=== PATIENT | female | born 1950 | race Caucasian/White ===

== ENCOUNTER 2023-07-29 09:55 | Day surgery (SDC) | payer MEDICARE, OTHER ==
[~2023-07-29 09:55] MED LIST: ALPRAZolam 0.25 MG TAB PO PRN; ALPRAZolam 0.5 MG TAB PO PRN; ASPIRIN 325 MG TAB PO STA; NITROGLYCERIN SL TABS 0.4 MG TAB SUBLINGUAL PRN; SODIUM CHLORIDE 0.9% 1,000 ML in EMPTY BAG 1 BAG IV SCH
[2023-07-29] MEDS: SODIUM CHLORIDE 0.9% 1,000 ML IV ONE (10:54)
[2023-07-29 11:25] VITALS: RESP 16; TEMP 98.1
[2023-07-29] MEDS ORDERED: HEPARIN SODIUM 1,000 UN/ML (10ML VL) ONE (14:07)
[2023-07-29] MEDS: LIDOCAINE 1% INJ 10MG/ML (5 ML VIAL-PF) SQ ONE (14:19)
[2023-07-29] MEDS: MIDAZOLAM 2 MG/2 ML VIAL IVP ONE ×2 (14:19→14:27)
[2023-07-29] MEDS: fentaNYL (PF) 50 MCG/ML 2 ML AMP IVP ONE (14:19)
[2023-07-29] MEDS: VERAPAMIL SYRINGE (5 MG/10 ML) INTRAARTER ONE (14:23)
[2023-07-29] MEDS: HEPARIN SODIUM 1,000 UN/ML (10ML VL) IVP ONE (14:26)
[2023-07-29] MEDS: IOPAMIDOL-370 100ML BTL INJ ONE (14:33)
[2023-07-29] MEDS ORDERED: fentaNYL (PF) 50 MCG/ML 2 ML AMP ONE (14:42)
--- NOTE | 2023-07-29 14:43 | P.CARDCATH ---
Description of Procedure: PROCEDURES PERFORMED: Left heart catheterization, bilateral coronary angiography, ultrasound guided arterial access INDICATION: abnormal stress test CONSENT:I have discussed the risks, benefits and alternative therapies for the above-mentioned procedure and for both sedation/analgesia as well as necessary blood product administration, if indicated, as they pertain to this patient. The patient has indicated understanding and acceptance of the risks and procedures discussed. PROCEDURE: After the risks, benefits and alternatives of the above mentioned procedure explained in detail with the patient, informed consent was obtained. Patient was taken to the catheterization lab and prepped and draped in usual fashion. Ultrasound guidance was used to assess for arterial access. 1% lidocaine was used to anesthetize the right radial artery. A 6-[place] sheath was placed in the right radial artery using modified Seldinger technique and ultrasound guidance. Left coronary angiography was performed with a 5-[place] JL 3.5 catheter and right coronary angiography was performed with a 5-[place] FR5 catheter in various views. A 5-[place] FR5 catheter was inserted into the left ventricle and pressure measurements were obtained. The right radial sheath was removed and a TR band was placed with hemostasis achieved. The patient to lerated the procedure well. Patient was transported back to the post catheterization holding area in stable condition. Conscious Sedation: Patient was monitored under the direct supervision of myself for conscious sedation using Versed and fentanyl for a total duration of 11 minutes HEMODYNAMICS: aorta: 122/78 LV: 121/5, LVEDP 19 SELECTIVE CORONARY ARTERIOGRAPHY: LEFT MAIN: The left main is a large caliber vessel which bifurcates into the LAD and circumflex. There is no significant stenosis. LEFT ANTERIOR DESCENDING CORONARY ARTERY: LAD is a large caliber vessel which wraps around to the apex. There R mild luminal irregularities of the mid LAD of 10% stenosis. LEFT CIRCUMFLEX CORONARY ARTERY: Left circumflex is a moderate caliber vessel without significant stenosis. RIGHT CORONARY ARTERY: The right coronary artery is a large caliber vessel which gives off a PDA and PLV branch and is the dominant vessel. There is no significant stenosis. FINAL IMPRESSION: 1. Relatively normal coronary arteries as described above other then mild luminal irregularities of the mid LAD. 2. Mildly elevated left sided filling pressures PLAN: 1. Aggressive risk factor modification per most recent ACC/AHA guidelines. 2. Follow-up in the office in 1-2 weeks.
[2023-07-29] MEDS ORDERED: RX INFO: IV CONTRAST WAS GIVEN 1 EACH MISC MISCELLANE PRN (15:00)
[2023-07-29 18:34] VITALS: BP 134/71; PULSE 58
== END 2023-07-29 18:28 | disposition home or self-care (01) ==
LOC: CATHCVL 09:55
PROVIDERS: ATTEND Internal Medicine
DX: I73.9 Peripheral vascular disease, unspecified (principal); I10 Essential (primary) hypertension; E78.5 Hyperlipidemia, unspecified; J44.9 Chronic obstructive pulmonary disease, unspecified; F17.290 Nicotine dependence, other tobacco product, uncomplicated; F17.210 Nicotine dependence, cigarettes, uncomplicated; Z79.51 Long term (current) use of inhaled steroids; Z79.899 Other long term (current) drug therapy
CPT/HCPCS: 93458; 76937; C1769 ×2; C1894; J2250; J2001; J3010; J1644; Q9967

== ENCOUNTER 2023-09-12 23:14 | Inpatient (IN) | payer MEDICARE, OTHER ==
--- NOTE | 2023-09-12 23:34 | ED ---
General Adult HPI <Dru Garber - Last Filed: 09/13/23 06:06> - General Source: patient, EMS Mode of arrival: EMS Limitations: no limitations <Kevin Nicholson - Last Filed: 09/13/23 19:14> - General Chief complaint: Fall Stated complaint: Fall Time Seen by Provider: 09/12/23 23:15 - History of Present Illness Initial comments: Patient presents to the ED by ambulance for evaluation after falling this evening. Patient states that she has been falling frequently recently, and she is unsure why. Patient states that her fall this evening occurred after she "lost my balance". Patient denies feeling dizzy or lightheaded prior to falling, and she denies LOC or syncope. Patient is currently only complaining of having mild left hip pain. Patient denies any other injury or site of pain. Patient denies head injury, headache, LOC, focal numbness/weakness/neuro deficit, visual changes, speech difficulty, neck/back/upper extremity pain, chest pain, dyspnea, palpitations, dizziness, abdominal pain, nausea/vomiting/diarrhea, bloody or melanotic stool, dysuria or urinary symptoms, or any other symptoms or complaints. Patient states that her tetanus is up-to-date. (Kevin Nicholson) - Related Data Home Medications Medication Instructions Recorded Confirmed Albuterol Inhaler [Ventolin Hfa 1 puff INHALATION RT-QID 07/26/23 09/13/23 Inhaler] Aspirin [Adult Low Dose Aspirin EC] 81 mg PO QAM 07/26/23 09/13/23 Atorvastatin [Lipitor] 10 mg PO HS 07/26/23 09/13/23 Baclofen 10 mg PO BID 07/26/23 09/13/23 Cholecalciferol [Vitamin D3 (25 25 mcg PO QAM 07/26/23 09/13/23 Mcg = 1000 Iu)] Clopidogrel [Plavix] 75 mg PO QAM 07/26/23 09/13/23 DULoxetine HCL [Cymbalta] 60 mg PO QAM 07/26/23 09/13/23 Docusate [Colace] 100 mg PO BID 07/26/23 09/13/23 Fluticasone/Umeclidin/Vilanter 1 puff INHALATION RT-DAILY 07/26/23 09/13/23 [Trelegy Ellipta 200-62.5-25] Ibuprofen 800 mg PO BID PRN 07/26/23 09/13/23 LORazepam 1 mg PO BID PRN 07/26/23 09/13/23 Loratadine 10 mg PO QAM 07/26/23 09/13/23 Magnesium Hydroxide [Milk of 30 ml PO DAILY PRN 07/26/23 09/13/23 Magnesia] Metoprolol Succinate [Metoprolol 12.5 mg PO PC-LUNCH 07/26/23 09/13/23 Succinate ER] Montelukast [Singulair] 10 mg PO QAM 07/26/23 09/13/23 Vit C/E/Zn/Coppr/Lutein/Zeaxan 2 tab PO BID 07/26/23 09/13/23 [Preservision Areds 2 Softgel] amLODIPine BESYLATE 2.5 mg PO PC-LUNCH 07/26/23 09/13/23 lisinopriL [Zestril] 10 mg PO HS 07/26/23 09/13/23 traMADol HCL 50 mg PO BID PRN 07/26/23 09/13/23 Gabapentin [Neurontin] 100 mg PO TID 09/13/23 09/13/23 Oxybutynin Xl [Ditropan XL] 5 mg PO DAILY 09/13/23 09/13/23 Propylene Glycol/Peg 400 [Systane 1 drop BOTH EYES QID PRN 09/13/23 09/13/23 Ultra 0.4-0.3% Eye Drp] Sodium Chloride 5% Ophth Soln 1 drop BOTH EYES BID 09/13/23 09/13/23 [Mary Anne 128] Allergies Allergy/AdvReac Type Severity Reaction Status Date / Time latex Allergy Rash/Hives Verified 09/13/23 09:36 airborne allergies Allergy congestion. Uncoded 09/12/23 23:21 Review of Systems ROS Other: All systems not noted in ROS Statement are negative. <Dru Garber - Last Filed: 09/13/23 06:06> ROS Other: All systems not noted in ROS Statement are negative. <Kevin Nicholson - Last Filed: 09/13/23 19:14> ROS Statement: Those systems with pertinent positive or pertinent negative responses have been documented in the HPI. Past Medical History Past Medical History: Asthma, Cancer, COPD, GERD/Reflux, Hyperlipidemia, Hypertension, Renal Disease, Vascular Disorder Additional Past Medical History / Comment(s): PAD, peripheral neuropathy bilateral legs, overactive bladder, hyperparathyroidism, kidstones, gallstones, osteoporosis, cervical cancer/surgery, balance issues at times, back pain/scoliosis. History of Any Multi-Drug Resistant Organisms: None Reported Past Surgical History: Orthopedic Surgery Additional Past Surgical History / Comment(s): Cervix surgery, bone spur removed R great toe, bilateral leg angioplasty/stents, pseudocyst removed from pancreas Additional Past Anesthesia/Blood Transfusion Reaction / Comment(s): Pt has woken during surgery. Past Psychological History: Anxiety Smoking Status: Former smoker Past Alcohol Use History: Occasional Past Drug Use History: None Reported - Past Family History Father Family Medical History: No Reported History Mother Family Medical History: Osteoarthritis (OA) Additional Family Medical History / Comment(s): Obesity <Kevin Nicholson - Last Filed: 09/13/23 19:14> General Exam Limitations: no limitations General appearance: alert, in no apparent distress Head exam: Present: atraumatic, normocephalic Eye exam: Present: normal appearance, PERRL, EOMI ENT exam: Present: mucous membranes moist Neck exam: Present: normal inspection, full ROM, other (Trachea is in midline). Absent: tenderness Respiratory exam: Present: normal lung sounds bilaterally. Absent: respiratory distress, wheezes, rales, rhonchi, stridor Cardiovascular Exam: Present: regular rate, normal rhythm, normal heart sounds, other (Normal radial and dorsalis pedis pulses bilaterally) GI/Abdominal exam: Present: soft. Absent: distended, tenderness, guarding Extremities exam: Present: full ROM, other (Pelvis is stable and nontender; patient has full range of motion at bilateral hips and knees; mild left lateral hip tenderness; a superficial abrasion is noted over the left anterior knee). Absent: pedal edema, calf tenderness Back exam: Present: normal inspection. Absent: tenderness Neurological exam: Present: alert, oriented X3, CN II-XII intact. Absent: motor sensory deficit Psychiatric exam: Present: normal affect Skin exam: Present: warm, dry, normal color <Kevin Nicholson - Last Filed: 09/13/23 19:14> Course <Kevin Nicholson - Last Filed: 09/13/23 19:14> Vital Signs 09/12/23 09/13/23 09/13/23 23:18 00:00 01:00 Temperature 98.3 F Pulse Rate 77 72 Respiratory 18 18 18 Rate Blood Pressure 142/84 126/85 128/78 O2 Sat by Pulse 95 95 95 Oximetry 09/13/23 09/13/23 09/13/23 02:00 03:00 04:00 Temperature Pulse Rate 74 Respiratory 18 18 18 Rate Blood Pressure 145/84 142/81 143/86 O2 Sat by Pulse 95 95 95 Oximetry 09/13/23 09/13/23 09/13/23 04:29 05:00 06:00 Temperature Pulse Rate 80 68 72 Respiratory 18 18 18 Rate Blood Pressure 122/79 128/84 122/73 O2 Sat by Pulse 95 90 L 98 Oximetry 09/13/23 10:00 Temperature Pulse Rate 82 Respiratory 18 Rate Blood Pressure 144/85 O2 Sat by Pulse 96 Oximetry - Reevaluation(s) Reevaluation #1: 09/13/23 01:13 Patient was endorsed to Dr. Garber (secondary to end of my shift) with the patient's imaging reports and UA still pending. Dr. Garber to follow-up on the results of these studies and to take over care of the patient at this time. (Kevin Nicholson) EKG Findings - EKG Comments: EKG Findings:: ED physician interpretation (interpreted by me): Normal sinus rhythm, no ectopy, ventricular rate of 72 bpm, normal CO and QRS intervals, no rmal QT interval, normal axis, no ST or T wave abnormality <Kevin Nicholson - Last Filed: 09/13/23 19:14> Medical Decision Making - Lab Data Result diagrams: 09/12/23 23:21 09/12/23 23:21 <Dru Garber - Last Filed: 09/13/23 06:06> - Lab Data Result diagrams: 09/12/23 23:21 09/12/23 23:21 <Kevin Nicholson - Last Filed: 09/13/23 19:14> - Medical Decision Making CT negative for for acute intracranial hemorrhage or mass effect. Pelvis x-ray negative for displaced fracture, chest x-ray concerning for infiltrate given the leukocytosis I will admit for antibiotics. Patient started on IV fluids cultures obtained. (Dru Garber) Was pt. sent in by a medical professional or institution (DANIELE Sevilla, MILEAGE CLERK, urgent care, hospital, or retirement...) When possible be specific @ -No Did you speak to anyone other than the patient for history (EMS, parent, family, police, friend...)? What history was obtained from this source @ -No Did you review nursing and triage notes (agree or disagree)? Why? @ -I reviewed and agree with nursing and triage notes Were old charts reviewed (outside hosp., previous admission, EMS record, old EKG, old radiological studies, urgent care reports/EKG's, retirement records)? Report findings @ -No old charts were reviewed Differential Diagnosis (chest pain, altered mental status, abdominal pain women, abdominal pain men, vaginal bleeding, weakness, fever, dyspnea, syncope, headache, dizziness, GI bleed, back pain, seizure, CVA, palpatations, mental health, musculoskeletal)? @ -Fall, sprain, strain, fracture, contusion, abrasion, vertigo, electrolyte abnormality, renal disease, ACS, dysrhythmia, dehydration, hypoglycemia, hyperglycemia, disequilibrium, CVA, intracranial mass, this is not meant to be a complete list EKG interpreted by me (3pts min.). @ -As above U/S interpreted by me (1pt. min.). @ -None done What testing was considered but not performed or refused? (CT, X-rays, U/S, labs)? Why? @ -None What meds were considered but not given or refused? Why? @ -None Did you discuss the management of the patient with other professionals (professionals i.e. DANIELE Sevilla, MILEAGE CLERK, lab, RT, psych nurse, social services, rock dust sprayer, teacher, tactical response group officer, housing case manager)? Give summary @ -No Was smoking cessation discussed for >3mins.? @ -No Was critical care preformed (if so, how long)? @ -No Were there social determinants of health that impacted care today? How? (Homelessness, low income, unemployed, alcoholism, drug addiction, transportation, low edu. Level, literacy, decrease access to med. care, detention, rehab)? @ -No Was there de-escalation of care discussed even if they declined (Discuss DNR or withdrawal of care, Hospice)? DNR status @ -No What co-morbidities impacted this encounter? (DM, HTN, Smoking, COPD, CAD, Cancer, CVA, ARF, Chemo, Hep., AIDS, mental health diagnosis, sleep apnea, morbid obesity)? @ -None Was patient admitted / discharged? Hospital course, mention meds given and route, prescriptions, significant lab abnormalities, going to OR and other pertinent info. @ -Patient's imaging reports are still pending at this time. Patient was endorsed to Dr. Garber secondary to end of my shift. Patient is noted to have a leukocytosis, but she is not febrile. UA is also still pending at this time. Dr. Garber to take over care of the patient at this time. (Kevin Nicholson) - Lab Data Lab Results 09/12/23 09/12/23 09/12/23 Range/Units 23:21 23:21 23:21 WBC 15.3 H (3.8-10.6) k/uL RBC 4.44 (3.80-5.40) m/uL Hgb 12.3 (11.4-16.0) gm/dL Hct 37.9 (34.0-46.0) % MCV 85.5 (80.0-100.0) fL MCH 27.8 (25.0-35.0) pg MCHC 32.5 (31.0-37.0) g/dL RDW 15.4 (11.5-15.5) % Plt Count 439 (150-450) k/uL MPV 7.6 Neutrophils % 75 % Lymphocytes % 15 % Monocytes % 7 % Eosinophils % 2 % Basophils % 0 % Neutrophils # 11.4 H (1.3-7.7) k/uL Lymphocytes # 2.3 (1.0-4.8) k/uL Monocytes # 1.0 (0-1.0) k/uL Eosinophils # 0.3 (0-0.7) k/uL Basophils # 0.1 (0-0.2) k/uL PT 10.3 (10.0-12.5) sec INR 0.9 (<1.2) APTT 23.3 (22.0-30.0) sec Sodium 127 L (137-145) mmol/L Potassium 3.6 (3.5-5.1) mmol/L Chloride 98 (98-107) mmol/L Carbon Dioxide 22 (22-30) mmol/L Anion Gap 7 mmol/L BUN 12 (7-17) mg/dL Creatinine 0.78 (0.52-1.04) mg/dL Est GFR (CKD-EPI)AfAm 89 (>60 ml/min/1.73 sqM) Est GFR (CKD-EPI)NonAf 77 (>60 ml/min/1.73 sqM) Glucose 90 (74-99) mg/dL Calcium 9.1 (8.4-10.2) mg/dL Total Bilirubin 0.5 (0.2-1.3) mg/dL AST 17 (14-36) U/L ALT 11 (4-34) U/L Alkaline Phosphatase 93 (38-126) U/L Troponin I (0.000-0.034) ng/mL Total Protein 5.8 L (6.3-8.2) g/dL Albumin 3.6 (3.5-5.0) g/dL Procalcitonin (0.02-0.09) ng/mL Urine Color Urine Appearance (Clear) Urine pH (5.0-8.0) Ur Specific [place] (1.001-1.035) Urine Protein (Negative) Urine Glucose (UA) (Negative) Urine Ketones (Negative) Urine Blood (Negative) Urine Nitrite (Negative) Urine Bilirubin (Negative) Urine Urobilinogen (<2.0) mg/dL Ur Leukocyte Esterase (Negative) 09/12/23 09/12/23 09/13/23 Range/Units 23:21 23:21 02:17 WBC (3.8-10.6) k/uL RBC (3.80-5.40) m/uL Hgb (11.4-16.0) gm/dL Hct (34.0-46.0) % MCV (80.0-100.0) fL MCH (25.0-35.0) pg MCHC (31.0-37.0) g/dL RDW (11.5-15.5) % Plt Count (150-450) k/uL MPV Neutrophils % % Lymphocytes % % Monocytes % % Eosinophils % % Basophils % % Neutrophils # (1.3-7.7) k/uL Lymphocytes # (1.0-4.8) k/uL Monocytes # (0-1.0) k/uL Eosinophils # (0-0.7) k/uL Basophils # (0-0.2) k/uL PT (10.0-12.5) sec INR (<1.2) APTT (22.0-30.0) sec Sodium (137-145) mmol/L Potassium (3.5-5.1) mmol/L Chloride (98-107) mmol/L Carbon Dioxide (22-30) mmol/L Anion Gap mmol/L BUN (7-17) mg/dL Creatinine (0.52-1.04) mg/dL Est GFR (CKD-EPI)AfAm (>60 ml/min/1.73 sqM) Est GFR (CKD-EPI)NonAf (>60 ml/min/1.73 sqM) Glucose (74-99) mg/dL Calcium (8.4-10.2) mg/dL Total Bilirubin (0.2-1.3) mg/dL AST (14-36) U/L ALT (4-34) U/L Alkaline Phosphatase (38-126) U/L Troponin I <0.012 (0.000-0.034) ng/mL Total Protein (6.3-8.2) g/dL Albumin (3.5-5.0) g/dL Procalcitonin 0.05 (0.02-0.09) ng/mL Urine Color Colorless Urine Appearance Clear (Clear) Urine pH 6.0 (5.0-8.0) Ur Specific [place] 1.006 (1.001-1.035) Urine Protein Negative (Negative) Urine Glucose (UA) Negative (Negative) Urine Ketones Negative (Negative) Urine Blood Negative (Negative) Urine Nitrite Negative (Negative) Urine Bilirubin Negative (Negative) Urine Urobilinogen <2.0 (<2.0) mg/dL Ur Leukocyte Esterase Negative (Negative) Disposition Is patient prescribed a controlled substance at d/c from ED?: No Time of Disposition: 06:07 <Dru Garber - Last Filed: 09/13/23 06:06> <Kevin Nicholson - Last Filed: 09/13/23 19:14> Clinical Impression: Fall, Abrasion of left knee, Pneumonia, Leukocytosis Disposition: ADMITTED IP TO THIS HOSP Condition: Stable
[2023-09-13 00:25] LABS: INR 0.9 (<1.2); Partial Thromboplastin Time 23.3 sec (22.0-30.0); Prothrombin Time 10.3 sec (10.0-12.5)
[2023-09-13 00:27] LABS: ALT 11 U/L (4-34); AST 17 U/L (14-36); African American GFR (CKD) 89 (>60 ml/min/1.73 sqM); Albumin 3.6 g/dL (3.5-5.0); Alkaline Phosphatase 93 U/L (38-126); Anion Gap 7 mmol/L; Basophils # (A) 0.1 k/uL (0-0.2); Basophils % (A) 0 %; Blood Urea Nitrogen 12 mg/dL (7-17); Calcium 9.1 mg/dL (8.4-10.2); Carbon Dioxide 22 mmol/L (22-30); Chloride 98 mmol/L (98-107); Eosinophils # (A) 0.3 k/uL (0-0.7); Eosinophils % (A) 2 %; Glucose 90 mg/dL (74-99); HCT 37.9 % (34.0-46.0); HGB 12.3 gm/dL (11.4-16.0); Lymphocytes # (A) 2.3 k/uL (1.0-4.8); Lymphocytes % (A) 15 %; MCH 27.8 pg (25.0-35.0); MCHC 32.5 g/dL (31.0-37.0); MCV 85.5 fL (80.0-100.0); Mean Platelet Volume 7.6; Monocytes % (A) 7 %; Neutrophils # (A) 11.4 k/uL (1.3-7.7); Neutrophils % (A) 75 %; Non-African American GFR(CKD) 77 (>60 ml/min/1.73 sqM); Platelet Count 439 k/uL (150-450); Potassium 3.6 mmol/L (3.5-5.1); RBC 4.44 m/uL (3.80-5.40); RDW 15.4 % (11.5-15.5); Sodium 127 mmol/L (137-145); Total Bilirubin 0.5 mg/dL (0.2-1.3); Total Protein 5.8 g/dL (6.3-8.2); WBC 15.3 k/uL (3.8-10.6)
[2023-09-13 02:33] LABS: Appearance,Urine Clear (Clear); Bilirubin,Urine Negative (Negative); Blood,Urine Negative (Negative); Color,Urine Colorless; Glucose,Urine (UA) Negative (Negative); Ketones,Urine Negative (Negative); Leukocyte Esterase,Urine Negative (Negative); Nitrite,Urine Negative (Negative); Protein,Urine Negative (Negative); Specific Gravity,Urine 1.006 (1.001-1.035); Urobilinogen,Urine <2.0 mg/dL (<2.0)
[2023-09-13] MEDS: HYDROmorphone 0.5 MG/0.5 ML SYRINGE IVP STA (04:30)
--- NOTE | 2023-09-13 05:25 | XR ---
EXAM: XR Left Hip With Pelvis When Performed, 1 View CLINICAL HISTORY: [email or web address].[email or web address] XR Reason: fall TECHNIQUE: Frontal view of the left hip with pelvis when performed. COMPARISON: No relevant prior studies available. FINDINGS: Bones/joints: Unremarkable. No acute fracture. No dislocation. Soft tissues: Unremarkable. IMPRESSION: Normal left hip x-ray.
--- NOTE | 2023-09-13 05:25 | CT ---
EXAM: CT Head Without Intravenous Contrast CLINICAL HISTORY: ITS.REASON CT Reason: falls TECHNIQUE: Axial computed tomography images of the head/brain without intravenous contrast. CTDI is 1079.4 mGy and DLP is 1079.4 mGy-cm. This CT exam was performed using one or more of the following dose reduction techniques: automated exposure control, adjustment of the mA and/or kV according to patient size, and/or use of iterative reconstruction technique. COMPARISON: 05/02/2021 FINDINGS: Brain: Right lower lobe infiltrate. No hemorrhage. No significant white matter disease. Ventricles: Unremarkable. No ventriculomegaly. Bones/joints: Unremarkable. No acute fracture. Soft tissues: Unremarkable. Sinuses: Unremarkable as visualized. No acute sinusitis. Mastoid air cells: Unremarkable as visualized. No mastoid effusion. IMPRESSION: No acute findings in the head/brain.
--- NOTE | 2023-09-13 05:26 | XR ---
EXAM: XR Chest, 1 View CLINICAL HISTORY: [email or web address].REASON XR Reason: fall TECHNIQUE: Frontal view of the chest. COMPARISON: No relevant prior studies available. FINDINGS: Lungs: Right lower lobe infiltrate. Pleural space: Unremarkable. No pneumothorax. Heart: Unremarkable. No cardiomegaly. Mediastinum: Unremarkable. Normal mediastinal contour. Bones/joints: Unremarkable. No acute fracture. IMPRESSION: Right lower lobe pneumonia
[2023-09-13] MEDS ORDERED: NALOXONE 0.4 MG/ML 1 ML VIAL IV PRN (06:05)
[2023-09-13] MEDS ORDERED: ACETAMINOPHEN TAB 325 MG TAB PO PRN (06:05)
[2023-09-13] MEDS: SODIUM CHLORIDE 0.9% 500 ML 500 ML IV ONE (06:25)
[2023-09-13] MEDS: AZITHROMYCIN 500 MG in SODIUM CHLORIDE 0.9% 250 ML IVPB STA (06:49)
[2023-09-13] MEDS: SODIUM CHLORIDE 0.9% 1,000 ML IV SCH (06:50)
[2023-09-13] MEDS: HYDROmorphone 0.5 MG/0.5 ML SYRINGE IVP PRN (07:56)
[2023-09-13] MEDS ORDERED: IPRATROPIUM-ALBUTEROL 3 ML NEB INHALATION PRN (11:22)
--- NOTE | 2023-09-13 11:31 | P.HPIM ---
History of Present Illness Patient is a pleasant 73-year-old female came with complaints of multiple falls. Patient was recently started on Neurontin and believes that Neurontin is causing her falls. Patient has multiple other complaints as well patient is com plaining also of left hip pain hip x-ray did not show any fracture, I will obtain a CT of the hip. Patient is unable to move the hip at all patient does have gallstones and patient is complaining of severe pain in the right upper quadrant. Patient does have tenderness in the right upper quadrant ultrasound is being obtained and given surgery is being consulted. Patient has scoliosis and is on scheduled Flexeril without that patient has severe muscle spasms. Patient also has neuropathic symptoms patient is also on Cymbalta along with Neurontin for that patient apparently complained of some dizziness to the ER doctor although she denies any such complaints. Patient used to smoke quit smok ing is complaining of cough with some greenish sputum production chest x-ray did not show any pneumonia. Although it was read as a right lower lobe pneumonia. I will obtain a procalcitonin level patient was started on azithromycin. Patient has slight wheezing on exam. Patient is also hyponatremic with a serum sodium of 127 REVIEW OF SYSTEMS: All other review of systems are negative PHYSICAL EXAMINATION: GENERAL: The patient is alert and oriented x3, not in any acute distress. Thin built female HEENT: Pupils are round and equally reacting to light. EOMI. No scleral icterus. No conjunctival pallor. Normocephalic, atraumatic. No pharyngeal erythema. No thyromegaly. CARDIOVASCULAR: S1 and S2 present. No murmurs, rubs, or gallops. PULMONARY: Expiratory wheezing on exam ABDOMEN: Soft, tenderness in the right upper quadrant nondistended, normoactive bowel sounds. No palpable organomegaly. MUSCULOSKELETAL: Scoliosis no obvious swelling but active and passive motions of the left hip are limited EXTREMITIES: No cyanosis, clubbing, or pedal edema. NEUROLOGICAL: Gross neurological examination did not reveal any focal deficits. SKIN: No rashes. Assessment and plan -Multiple falls can be secondary to Neurontin which will be discontinued. Continue with Cymbalta. Patient apparently complained of dizziness will monitor his blood pressure will start on lisinopril with hold off on amlodipine at this time -Severe left hip pain after fall: Will obtain a CT of the left hip x-ray did not show any fracture if there is a fracture on the CAT scan orthopedic surgery will be consulted -Right upper quadrant abdominal pain General surgery consultation along with an ultrasound -COPD with acute exacerbation and bronchitis I did not see any pneumonic infiltrate will obtain a procalcitonin level patient will be started on azithromycin -Scoliosis -Generalized weakness with physical therapy and Occupational Therapy evaluation -Gastroesophageal reflux disease -Hyperlipidemia -Peripheral vascular disease DVT prophylaxis: Lovenox Past Medical History Past Medical History: Asthma, Cancer, COPD, GERD/Reflux, Hyperlipidemia, Hyper tension, Renal Disease, Vascular Disorder Additional Past Medical History / Comment(s): PAD, peripheral neuropathy bilateral legs, overactive bladder, hyperparathyroidism, kidstones, gallstones, osteoporosis, cervical cancer/surgery, balance issues at times, back pain/scolio sis. History of Any Multi-Drug Resistant Organisms: None Reported Past Surgical History: Orthopedic Surgery Additional Past Surgical History / Comment(s): Cervix surgery, bone spur removed R great toe, bilateral leg angioplasty/stents, pseudocyst removed from pancreas Additional Past Anesthesia/Blood Transfusion Reaction / Comment(s): Pt has woken during surgery. Past Psychological History: Anxiety Smoking Status: Former smoker Past Alcohol Use History: Occasional Past Drug Use History: None Reported - Past Family History Father Family Medical History: No Reported History Mother Family Medical History: Osteoarthritis (OA) Additional Family Medical History / Comment(s): Obesity Medications and Allergies Home Medications Medication Instructions Recorded Confirmed Type Albuterol Inhaler [Ventolin Hfa 1 puff INHALATION RT-QID 07/26/23 09/13/23 History Inhaler] Aspirin [Adult Low Dose Aspirin EC] 81 mg PO QAM 07/26/23 09/13/23 History Atorvastatin [Lipitor] 10 mg PO HS 07/26/23 09/13/23 History Baclofen 10 mg PO BID 07/26/23 09/13/23 History Cholecalciferol [Vitamin D3 (25 25 mcg PO QAM 07/26/23 09/13/23 History Mcg = 1000 Iu)] Clopidogrel [Plavix] 75 mg PO QAM 07/26/23 09/13/23 History DULoxetine HCL [Cymbalta] 60 mg PO QAM 07/26/23 09/13/23 History Docusate [Colace] 100 mg PO BID 07/26/23 09/13/23 History Fluticasone/Umeclidin/Vilanter 1 puff INHALATION RT-DAILY 07/26/23 09/13/23 History [Trelegy Ellipta 200-62.5-25] Ibuprofen 800 mg PO BID PRN 07/26/23 09/13/23 History LORazepam 1 mg PO BID PRN 07/26/23 09/13/23 History Loratadine 10 mg PO QAM 07/26/23 09/13/23 History Magnesium Hydroxide [Milk of 30 ml PO DAILY PRN 07/26/23 09/13/23 History Magnesia] Metoprolol Succinate [Metoprolol 12.5 mg PO PC-LUNCH 07/26/23 09/13/23 History Succinate ER] Montelukast [Singulair] 10 mg PO QAM 07/26/23 09/13/23 History Vit C/E/Zn/Coppr/Lutein/Zeaxan 2 tab PO BID 07/26/23 09/13/23 History [Preservision Areds 2 Softgel] amLODIPine BESYLATE 2.5 mg PO PC-LUNCH 07/26/23 09/13/23 History lisinopriL [Zestril] 10 mg PO HS 07/26/23 09/13/23 History traMADol HCL 50 mg PO BID PRN 07/26/23 09/13/23 History Gabapentin [Neurontin] 100 mg PO TID 09/13/23 09/13/23 History Oxybutynin Xl [Ditropan XL] 5 mg PO DAILY 09/13/23 09/13/23 History Propylene Glycol/Peg 400 [Systane 1 drop BOTH EYES QID PRN 09/13/23 09/13/23 History Ultra 0.4-0.3% Eye Drp] Sodium Chloride 5% Ophth Soln 1 drop BOTH EYES BID 09/13/23 09/13/23 History [Mary Anne 128] Allergies Allergy/AdvReac Type Severity Reaction Status Date / Time latex Allergy Rash/Hives Verified 09/13/23 09:36 airborne allergies Allergy congestion. Uncoded 09/12/23 23:21 Physical Exam Vitals: Vital Signs Temp Pulse Resp BP Pulse Ox 09/13/23 10:00 82 18 144/85 96 09/13/23 06:00 72 18 122/73 98 09/13/23 05:00 68 18 128/84 90 L 09/13/23 04:29 80 18 122/79 95 09/13/23 04:00 74 18 143/86 95 09/13/23 03:00 18 142/81 95 09/13/23 02:00 18 145/84 95 09/13/23 01:00 18 128/78 95 09/13/23 00:00 72 18 126/85 95 09/12/23 23:18 98.3 F 77 18 142/84 95 Intake and Output 09/12/23 09/13/23 09/13/23 22:59 06:59 14:59 Other: Weight 54.431 kg Results CBC & Chem 7: 09/12/23 23:21 09/12/23 23:21 Labs: Abnormal Lab Results - Last 24 Hours (Table) 09/12/23 09/12/23 Range/Units 23:21 23:21 WBC 15.3 H (3.8-10.6) k/uL Neutrophils # 11.4 H (1.3-7.7) k/uL Sodium 127 L (137-145) mmol/L Total Protein 5.8 L (6.3-8.2) g/dL
[2023-09-13] MEDS: FAMOTIDINE 20 MG TAB PO SCH (12:06)
[2023-09-13] MEDS: POTASSIUM CHLORIDE ER 20 MEQ TAB.ER PO STA (12:06)
[2023-09-13] MEDS: BACLOFEN 10 MG TAB PO SCH (12:06)
[2023-09-13] MEDS: HYDROcodone/APAP 7.5-325MG 1 EACH TAB PO PRN (12:07)
--- NOTE | 2023-09-13 13:48 | CT ---
EXAMINATION TYPE: CT hip LT wo con CT DLP: 398.8 mGycm, Automated exposure control for dose reduction was used. DATE OF EXAM: 09/13/2023 1:12 PM COMPARISON: . Extremity radiograph same day. CLINICAL INDICATION:Female, 73 years old with history of Left hip fracture or femoral fracture; PHH, Left hip fracture or femoral fracture TECHNIQUE: Axial images were obtained of the CT hip LT wo con, Additional coronal and sagittal reform atted images and soft tissue and bone window were obtained for review. 3-D reconstruction was created on a separate workstation. Contrast used: mL of , (None if empty) Oral contrast used: (None if empty) FINDINGS: Greater trochanter fracture, minimally comminuted and not significantly displaced. No sign ificant soft tissue swelling or joint effusion is identified. No focal muscular atrophy or edema is i dentified. No radiopaque foreign body identified. IMPRESSION: Greater trochanter fracture, minimally comminuted and not significantly displaced
[2023-09-13] MEDS: ALBUTEROL NEBULIZED 2.5 MG/3 ML INHALATION SCH (16:08)
[2023-09-13] MEDS: IPRATROPIUM-ALBUTEROL 3 ML NEB INHALATION SCH (16:34)
--- NOTE | 2023-09-13 17:23 | P.GSCN ---
History of Present Illness Consult date: 09/13/23 Reason for Consult: right upper quadrant pain History of present illness: this is a 73-year-old female who presents to the emergency room after having a fall. Patient states that she has right upper quadrant pain which radiates to her back. Patient states she had pain prior to her fall. She states the pain is identical to her previous complaints which were worked up and found to have symptomatically cholelithiasis. Past Medical History Past Medical History: Asthma, Cancer, COPD, GERD/Reflux, Hyperlipidemia, Hypertension, Renal Disease, Vascular Disorder Additional Past Medical History / Comment(s): PAD, peripheral neuropathy bilateral legs, overactive bladder, hyperparathyroidism, kidstones, gallstones, osteoporosis, cervical cancer/surgery, balance issues at times, back pain/scoliosis. History of Any Multi-Drug Resistant Organisms: None Reported Past Surgical History: Orthopedic Surgery Additional Past Surgical History / Comment(s): Cervix surgery, bone spur removed R great toe, bilateral leg angioplasty/stents, pseudocyst removed from pancreas Additional Past Anesthesia/Blood Transfusion Reaction / Comm: Pt has woken during surgery. Past Psychological History: Anxiety Smoking Status: Former smoker Past Alcohol Use History: Occasional Past Drug Use History: None Reported - Past Family History Father Family Medical History: No Reported History Mother Family Medical History: Osteoarthritis (OA) Additional Family Medical History / Comment(s): Obesity Medications and Allergies Home Medications Medication Instructions Recorded Confirmed Type Albuterol Inhaler [Ventolin Hfa 1 puff INHALATION RT-QID 07/26/23 09/13/23 History Inhaler] Aspirin [Adult Low Dose Aspirin EC] 81 mg PO QAM 07/26/23 09/13/23 History Atorvastatin [Lipitor] 10 mg PO HS 07/26/23 09/13/23 History Baclofen 10 mg PO BID 07/26/23 09/13/23 History Cholecalciferol [Vitamin D3 (25 25 mcg PO QAM 07/26/23 09/13/23 History Mcg = 1000 Iu)] Clopidogrel [Plavix] 75 mg PO QAM 07/26/23 09/13/23 History DULoxetine HCL [Cymbalta] 60 mg PO QAM 07/26/23 09/13/23 History Docusate [Colace] 100 mg PO BID 07/26/23 09/13/23 History Fluticasone/Umeclidin/Vilanter 1 puff INHALATION RT-DAILY 07/26/23 09/13/23 History [Trelegy Ellipta 200-62.5-25] Ibuprofen 800 mg PO BID PRN 07/26/23 09/13/23 History LORazepam 1 mg PO BID PRN 07/26/23 09/13/23 History Loratadine 10 mg PO QAM 07/26/23 09/13/23 History Magnesium Hydroxide [Milk of 30 ml PO DAILY PRN 07/26/23 09/13/23 History Magnesia] Metoprolol Succinate [Metoprolol 12.5 mg PO PC-LUNCH 07/26/23 09/13/23 History Succinate ER] Montelukast [Singulair] 10 mg PO QAM 07/26/23 09/13/23 History Vit C/E/Zn/Coppr/Lutein/Zeaxan 2 tab PO BID 07/26/23 09/13/23 History [Preservision Areds 2 Softgel] amLODIPine BESYLATE 2.5 mg PO PC-LUNCH 07/26/23 09/13/23 History lisinopriL [Zestril] 10 mg PO HS 07/26/23 09/13/23 History traMADol HCL 50 mg PO BID PRN 07/26/23 09/13/23 History Gabapentin [Neurontin] 100 mg PO TID 09/13/23 09/13/23 History Oxybutynin Xl [Ditropan XL] 5 mg PO DAILY 09/13/23 09/13/23 History Propylene Glycol/Peg 400 [Systane 1 drop BOTH EYES QID PRN 09/13/23 09/13/23 History Ultra 0.4-0.3% Eye Drp] Sodium Chloride 5% Ophth Soln 1 drop BOTH EYES BID 09/13/23 09/13/23 History [Mary Anne 128] Allergies Allergy/AdvReac Type Severity Reaction Status Date / Time latex Allergy Rash/Hives Verified 09/13/23 09:36 airborne allergies Allergy congestion. Uncoded 09/12/23 23:21 Surgical - Exam Vital Signs Temp Pulse Resp BP Pulse Ox 98.3 F 77 18 142/84 95 09/12/23 23:18 09/12/23 23:18 09/12/23 23:18 09/12/23 23:18 09/12/23 23:18 - General well developed, well nourished - Eyes PERRL, normal ocular movement - ENT normal pinna - Neck no masses - Respiratory normal expansion - Cardiovascular Rhythm: regular - Abdomen right upper quadrant tenderness Abdomen: soft Results - Labs 09/12/23 23:21 09/12/23 23:21 Abnormal Lab Results - Last 24 Hours (Table) 09/12/23 09/12/23 Range/Units 23:21 23:21 WBC 15.3 H (3.8-10.6) k/uL Neutrophils # 11.4 H (1.3-7.7) k/uL Sodium 127 L (137-145) mmol/L Total Protein 5.8 L (6.3-8.2) g/dL Diabetes panel 09/12/23 Range/Units 23:21 Sodium 127 L (137-145) mmol/L Potassium 3.6 (3.5-5.1) mmol/L Chloride 98 (98-107) mmol/L Carbon Dioxide 22 (22-30) mmol/L BUN 12 (7-17) mg/dL Creatinine 0.78 (0.52-1.04) mg/dL Glucose 90 (74-99) mg/dL Calcium 9.1 (8.4-10.2) mg/dL AST 17 (14-36) U/L ALT 11 (4-34) U/L Alkaline Phosphatase 93 (38-126) U/L Total Protein 5.8 L (6.3-8.2) g/dL Albumin 3.6 (3.5-5.0) g/dL Calcium panel 09/12/23 Range/Units 23:21 Calcium 9.1 (8.4-10.2) mg/dL Albumin 3.6 (3.5-5.0) g/dL Pituitary panel 09/12/23 Range/Units 23:21 Sodium 127 L (137-145) mmol/L Potassium 3.6 (3.5-5.1) mmol/L Chloride 98 (98-107) mmol/L Carbon Dioxide 22 (22-30) mmol/L BUN 12 (7-17) mg/dL Creatinine 0.78 (0.52-1.04) mg/dL Glucose 90 (74-99) mg/dL Calcium 9.1 (8.4-10.2) mg/dL Adrenal panel 09/12/23 Range/Units 23:21 Sodium 127 L (137-145) mmol/L Potassium 3.6 (3.5-5.1) mmol/L Chloride 98 (98-107) mmol/L Carbon Dioxide 22 (22-30) mmol/L BUN 12 (7-17) mg/dL Creatinine 0.78 (0.52-1.04) mg/dL Glucose 90 (74-99) mg/dL Calcium 9.1 (8.4-10.2) mg/dL Total Bilirubin 0.5 (0.2-1.3) mg/dL AST 17 (14-36) U/L ALT 11 (4-34) U/L Alkaline Phosphatase 93 (38-126) U/L Total Protein 5.8 L (6.3-8.2) g/dL Albumin 3.6 (3.5-5.0) g/dL - Imaging US - abdomen: pending Assessment and Plan Assessment: history of symptomatic cholelithiasis. Patient has been quadrant pain which is similar to her previous attacks of biliary colic. Patient most likely has acute and chronic cholecystitis. She'll be treated with antibiotics. Ultrasound of the gallbladder is pending.
[2023-09-13] MEDS: METOPROLOL SUCCINATE (ER) 25 MG TAB.ER.24H PO SCH (17:44)
[2023-09-13] MEDS: PIPERACILLIN-TAZOBACTAM 3.375 GM in SODIUM CHLORIDE 0.9% 100 ML IVPB SCH (17:50)
--- NOTE | 2023-09-13 18:50 | US ---
EXAMINATION TYPE: US gallbladder DATE OF EXAM: 09/13/2023 COMPARISON: NONE CLINICAL INDICATION: Female, 73 years old with history of elevated liver enzymes; Elevated liver enzy mes. Patient states she has a hx of gallstones, kidney stones, pancreatic pseudocyst drainage, and surgery on her bile duct. TECHNIQUE: Multiple sonographic images of the right upper quadrant are obtained. FINDINGS: EXAM MEASUREMENTS: Liver Length: 14.1 cm Gallbladder Wall: 0.17 cm CBD: 0.55 cm Right Kidney: 11.2 x 6.1 x 4.5 cm SILVERWARE WASHER NOTES: Exam is limited due to gas. Pancreas: Obscured. Liver: Appears coarse in echotexture. Gallbladder: Mildly hydropic at 10.8 cm in length. Mobile internal echoes seen within the gallblad nitin. No wall thickening or surrounding fluid. Evidence for sonographic Santos's sign: No CBD: 0. 55 cm Right Kidney: Thinly septated cyst at midpole: 3.9 x 3.2 x 3.1 cm. Hypoechoic cortical lesion at the upper pole: 1.3 x 1.0 x 1.4 cm. No hydronephrosis. IMPRESSION: 1. Mildly hydropic gallbladder with some internal read. The distention is probably due to fasting sta te. No wall thickening or sonographic Santos sign. If further imaging assessment of the gallbladder i s desired, HIDA scan can be considered. 2. No biliary ductal dilatation. 3. 2 lesions of the right kidney. One of these appears to be a mildly complex 3.9 cm cyst. The other is indeterminate measuring 1.4 cm. Six-month follow-up renal ultrasound to reassess.
[2023-09-13] MEDS ORDERED: BUDESONIDE 0.5 MG/2 ML NEBU INHALATION SCH (20:00)
[2023-09-13] MEDS: SYMBICORT 80-4.5 MCG INHALER INHALATION SCH (20:56)
[2023-09-13] MEDS: DOCUSATE 100 MG CAP PO SCH (21:35)
[2023-09-13] MEDS: ATORVASTATIN 10 MG TAB PO SCH (21:35)
[2023-09-13] MEDS: lisinopriL 10 MG TAB PO SCH (21:35)
[2023-09-13] MEDS: LORazepam 1 MG TAB PO PRN (21:38)
[2023-09-14] MEDS: KETOROLAC 15 MG/ML 1 ML VIAL IVP PRN (00:37)
[2023-09-14] MEDS: SODIUM CHLORIDE 5% OPHTH DROPS 15 ML BTL BOTH EYES SCH (01:02)
[2023-09-14] MEDS ORDERED: IPRATROPIUM 0.5 MG/2.5 ML NEBU INHALATION SCH (08:00)
[2023-09-14] MEDS: DULoxetine HCL 60 MG CAPSULE.DR PO SCH (08:26)
[2023-09-14] MEDS: MONTELUKAST 10 MG TAB PO SCH (08:26)
[2023-09-14] MEDS: ASPIRIN 81 MG PO SCH (08:26)
[2023-09-14] MEDS: ENOXAPARIN 40 MG/0.4 ML SYRINGE SQ SCH (08:26)
[2023-09-14] MEDS: OXYBUTYNIN XL 5 MG TAB.ER.24 PO SCH (08:26)
[2023-09-14] MEDS: LORATADINE 10 MG TAB PO SCH (08:27)
[2023-09-14] MEDS: CLOPIDOGREL 75 MG TAB PO SCH (08:27)
[2023-09-14] MEDS ORDERED: AZITHROMYCIN 500 MG TAB PO SCH (09:00)
--- NOTE | 2023-09-14 11:32 | P.PN ---
Subjective Progress Note Date: 09/14/23 Patient is a pleasant 73-year-old female came with complaints of multiple falls. Patient was recently started on Neurontin and believes that Neurontin is causing her falls. Patient has multiple other complaints as well patient is complaining also of left hip pain hip x-ray did not show any fracture, I will obtain a CT of the hip. Patient is unable to move the hip at all patient does have gallstones and patient is complaining of severe pain in the right upper quadrant. Patient does have tenderness in the right upper quadrant ultrasound is being obtained and given surgery is being consulted. Patient has scoliosis and is on scheduled Flexeril without that patient has severe muscle spasms. Patient also has neuropathic symptoms patient is also on Cymbalta along with Neurontin for that patient apparently complained of some dizziness to the ER doctor although she denies any such complaints. Patient used to smoke quit smoking is complaining of cough with some greenish sputum production chest x-ray did not show any pneumonia. Although it was read as a right lower lobe pneumonia. I will obtain a procalcitonin level patient was started on azithromycin. Patient has slight wheezing on exam. Patient is also hyponatremic with a serum sodium of 127 09/14/2023 Patient is evaluated in follow up today on the medical floor. Her main complaint is right flank and right upper quadrant pain states it is sharp and aching rating 10/10. States the pain is greater than the pain to the left hip. Patient is receiving norco 7.5 mg and IV toradol. There is concern for Right lower lobe pneumonia, procalcitonin level is normal. Viral panel has been ordered. Patient is complaining of shortness of breath and wheezing today does have scattered wheezing on exam. Gallbladder ultrasound reveals mild hydropic gallbladder with concern for acute on chronic cholecystitis. General surgery following and jamarcus ent is currently on IV zosyn. The hip CT reveals left greater trochanter fracture, minimally communited, and not significantly displaced. No new blood work from today. Review of Systems Constitutional: Denied any fatigue denied any fever. Cardio vascular: denied any chest pain, palpitations Gastrointestinal: denied any nausea, vomiting, diarrhea, reports RUQ abdominal pain Pulmonary: Reports shortness of breath, no cough Neurologic denied any new focal deficits All inpatient medications were reviewed and appropriate changes in these medications as dictated in the interval history and assessment and plan. PHYSICAL EXAMINATION: GENERAL: The patient is alert and oriented x3, not in any acute distress. Thin built female HEENT: Pupils are round and equally reacting to light. EOMI. No scleral icterus. No conjunctival pallor. Normocephalic, atraumatic. No pharyngeal erythema. No thyromegaly. CARDIOVASCULAR: S1 and S2 present. No murmurs, rubs, or gallops. PULMONARY: Expiratory wheezing on exam ABDOMEN: Soft, tenderness in the right upper quadrant nondistended, normoactive bowel sounds. No palpable organomegaly. MUSCULOSKELETAL: Scoliosis no obvious swelling but active and passive motions of the left hip are limited EXTREMITIES: No cyanosis, clubbing, or pedal edema. NEUROLOGICAL: Gross neurological examination did not reveal any focal deficits. SKIN: No rashes. Assessment and plan -Multiple falls can be secondary to Neurontin which will be discontinued. Continue with Cymbalta. Patient apparently complained of dizziness amlodipine is on hold, dizziness has resolved. BP not low. -Severe left hip pain after fall: CT reveals Left greater tronchater fracture with orthopedics on consultation pending further recommendations. -Right upper quadrant abdominal pain likely due to acute on chronic cholecystitis, US reveals a mildly hydropic gallbladder on IV zosyn, general surgery following. Continue pain regimen. -COPD with acute exacerbation and bronchitis, mild right lower lobe infiltrate noted on exam. Viral panel ordered, procalcitonin level normal. Patient has continued scattered wheezing as patient may require surgical intervention this admission for the hip and the gallbladder, pulmonary services will be consulted. Patient continues on symbicort, updrafts and will add oral prednisone 40 mg daily. -Scoliosis -Generalized weakness with physical therapy and Occupational Therapy evaluation -Gastroesophageal reflux disease -Hyperlipidemia -Peripheral vascular disease DVT prophylaxis: Lovenox GI prophylaxis: Pepcid Full Code The impression and plan of care has been dictated by Brissa Lees Nurse Practitioner as directed. Dr. Mata MD I have performed a history and physical examination and medical decision making of this patient, discussed the same with the dictator, and agree with the dictators assessment and plan as written, documented as a scribe. Based on total visit time, I have performed more than 50% of this visit. Objective - Vital Signs Vital signs: Vital Signs Temp 98.5 F 09/14/23 07:55 Pulse 80 09/14/23 09:31 Resp 17 09/14/23 07:55 BP 159/76 09/14/23 07:55 Pulse Ox 95 09/14/23 07:55 FiO2 Intake & Output 09/13/23 09/14/23 09/14/23 18:59 06:59 18:59 Intake Total 700 Output Total 1000 Balance -300 Weight 54.431 kg Intake: Intake, IV Titration 700 Amount Piperacillin-Tazobactam 3 100 .375 gm In Sodium Chloride 0.9% 100 ml @ 25 mls/hr IVPB Q8HR [facility] Rx# :[id number] Sodium Chloride 0.9% 1, 600 000 ml @ 75 mls/hr IV . [id number] [facility] Rx#:[id number] Output: Urine 1000 Other: Voiding Method External Catheter - Labs CBC & Chem 7: 09/12/23 23:21 09/12/23 23:21 Assessment and Plan Time with Patient: Less than 30
--- NOTE | 2023-09-14 12:10 | P.CNOR ---
History of Present Illness - HPI Consult date: 09/14/23 History of present illness: This is a 73-year-old female who is admitted after multiple falls. Patient states that she has had at least 3 falls within the last week and states that she loses her balance. Patient states that she lives at home and has been able to ambulate with or without a walker. Patient states that she has noticed some left hip pain after one of her recent falls. Patient states that she is also here for evaluation of gallbladder issues. Patient's past medical history is significant for asthma, COPD, GERD, hyperlipidemia, hypertension, peripheral neuropathy, history of cervical cancer, overactive bladder, PAD, osteoporosis, history of back pain, renal disease and a vascular disorder. Patient denies any fever/chills, chest pain, shortness breath, numbness, weakness or tingling. Review of Systems See HPI. Past Medical History Past Medical History: Asthma, Cancer, COPD, GERD/Reflux, Hyperlipidemia, Hypertension, Renal Disease, Vascular Disorder Additional Past Medical History / Comment(s): PAD, peripheral neuropathy bilateral legs, overactive bladder, hyperparathyroidism, kidstones, gallstones, osteoporosis, cervical cancer/surgery, balance issues at times, back pain/scoliosis. History of Any Multi-Drug Resistant Organisms: None Reported Past Surgical History: Orthopedic Surgery Additional Past Surgical History / Comment(s): Cervix surgery, bone spur removed R great toe, bilateral leg angioplasty/stents, pseudocyst removed from pancreas Additional Past Anesthesia/Blood Transfusion Reaction / Comm: Pt has woken during surgery. Smoking Status: Former smoker - Past Family History Father Family Medical History: No Reported History Mother Family Medical History: Osteoarthritis (OA) Additional Family Medical History / Comment(s): Obesity Medications and Allergies Home Medications Medication Instructions Recorded Confirmed Type Albuterol Inhaler [Ventolin Hfa 1 puff INHALATION RT-QID 07/26/23 09/13/23 History Inhaler] Aspirin [Adult Low Dose Aspirin EC] 81 mg PO QAM 07/26/23 09/13/23 History Atorvastatin [Lipitor] 10 mg PO HS 07/26/23 09/13/23 History Baclofen 10 mg PO BID 07/26/23 09/13/23 History Cholecalciferol [Vitamin D3 (25 25 mcg PO QAM 07/26/23 09/13/23 History Mcg = 1000 Iu)] Clopidogrel [Plavix] 75 mg PO QAM 07/26/23 09/13/23 History DULoxetine HCL [Cymbalta] 60 mg PO QAM 07/26/23 09/13/23 History Docusate [Colace] 100 mg PO BID 07/26/23 09/13/23 History Fluticasone/Umeclidin/Vilanter 1 puff INHALATION RT-DAILY 07/26/23 09/13/23 History [Trelegy Ellipta 200-62.5-25] Ibuprofen 800 mg PO BID PRN 07/26/23 09/13/23 History LORazepam 1 mg PO BID PRN 07/26/23 09/13/23 History Loratadine 10 mg PO QAM 07/26/23 09/13/23 History Magnesium Hydroxide [Milk of 30 ml PO DAILY PRN 07/26/23 09/13/23 History Magnesia] Metoprolol Succinate [Metoprolol 12.5 mg PO PC-LUNCH 07/26/23 09/13/23 History Succinate ER] Montelukast [Singulair] 10 mg PO QAM 07/26/23 09/13/23 History Vit C/E/Zn/Coppr/Lutein/Zeaxan 2 tab PO BID 07/26/23 09/13/23 History [Preservision Areds 2 Softgel] amLODIPine BESYLATE 2.5 mg PO PC-LUNCH 07/26/23 09/13/23 History lisinopriL [Zestril] 10 mg PO HS 07/26/23 09/13/23 History traMADol HCL 50 mg PO BID PRN 07/26/23 09/13/23 History Gabapentin [Neurontin] 100 mg PO TID 09/13/23 09/13/23 History Oxybutynin Xl [Ditropan XL] 5 mg PO DAILY 09/13/23 09/13/23 History Propylene Glycol/Peg 400 [Systane 1 drop BOTH EYES QID PRN 09/13/23 09/13/23 History Ultra 0.4-0.3% Eye Drp] Sodium Chloride 5% Ophth Soln 1 drop BOTH EYES BID 09/13/23 09/13/23 History [Mary Anne 128] Allergies Allergy/AdvReac Type Severity Reaction Status Date / Time latex Allergy Rash/Hives Verified 09/13/23 09:36 airborne allergies Allergy congestion. Uncoded 09/12/23 23:21 Physical Examination On exam patient is resting comfortably in bed in no acute distress. Patient is alert and oriented 3. There is tenderness to palpation over the lateral aspect of the left hip. Patient has some discomfort with active hip flexion. There is some discomfort with hip motion. Calf is soft and nontender to palpation. Sensation intact. Neurovascular status and circulatory status are intact. Results A CT report of the left hip without contrast dated 09/13/2023 shows: Greater trochanter fracture, minimally comminuted and not significantly displaced. X-rays of the left hip and pelvis dated 09/13/2023 are negative. - Labs Labs: H & H 09/12/23 Range/Units 23:21 Hgb 12.3 (11.4-16.0) gm/dL Hct 37.9 (34.0-46.0) % Coagulation 09/12/23 Range/Units 23:21 INR 0.9 (<1.2) Result Diagrams: 09/12/23 23:21 09/12/23 23:21 Assessment and Plan (1) Fracture of greater trochanter of left femur Current Visit: Yes Status: Acute Code(s): S72.112A - DISP FX OF GREATER TROCHANTER OF LEFT FEMUR, INIT SNOMED Code(s): 599637942 Plan: 1. Imaging is reviewed. Patient is to protect her weightbearing and utilize a walker at all times. 2. Recommend physical therapy for mobilization. 3. There is no surgical intervention planned. Patient may follow-up as an outpatient.
[2023-09-14] MEDS: predniSONE 20 MG TAB PO SCH (12:11)
--- NOTE | 2023-09-14 13:10 | P.CNPUL ---
History of Present Illness Consult date: 09/14/23 Requesting physician: Delicia Hanley Reason for consult: dyspnea, COPD, abnormal CXR/CT Chief complaint: Right upper quadrant pain. History of present illness: Pulmonary consult dated September 14, 2023. This is a 73-year-old female who is seen today in the observation unit, room 161. She is currently on room air. The patient apparently came into the hospital complaining of losing balance, and pain in her right side, radiating to the back. The patient's chest x-ray shows some atelectasis in my opinion at the right lung base, likely because of her underlying gallbladder disease. She apparently is scheduled to have a cholecystectomy, tomorrow. Her procalcitonin level was 0.05, which is normal. She was placed on Rocephin and azithromycin. She did smoke for 40 to 50 years, at 1 pack a day. She does have established COPD and she sees my partner Dr. Kwon. For her COPD she uses Trelegy 200, 1 puff daily, and albuterol, as needed. Patient was actually admitted on September 11. The patient's past medical history is positive for COPD, gastroesophageal reflux disease, hyperlipidemia, hypertension, peripheral neuropathy, peripheral artery disease, overactive bladder, hyperparathyroidism, kidney stones, osteoporosis, cervical cancer, as well as anxiety. The patient currently does not smoke. Current labs include a white count of 15.3, hemoglobin 12.3, hematocrit 37.9, and a platelet count of 439,000. Coagulation studies were normal. Sodium 127, potassium 3.6, chlorides 98, CO2 22, BUN 12, creatinine 0.78. Glucose is normal. Procalcitonin level is 0.05. Urine is negative. She tested negative for influenza, RSV, and coronavirus. Blood cultures are currently negative. Gallbladder ultrasound shows a mildly hydropic gallbladder without biliary duct dilatation. A HIDA scan was recommended. Review of Systems REVIEW OF SYSTEMS: CONSTITUTIONAL: [Negative.] NEUROLOGIC: Losing balance. HEENT: [ Negative.] CARDIAC: [Negative.] PULMONARY: Chronic shortness of breath, at baseline. GI: Right upper quadrant abdominal pain. : [Negative.] RHEUMATOLOGIC: [ Negative.] IMMUNOLOGIC: [ Negative.] ENDOCRINE: [Negative. ] DERMATOLOGIC: [Negative.] Past Medical History Past Medical History: Asthma, Cancer, COPD, GERD/Reflux, Hyperlipidemia, Hypertension, Renal Disease, Vascular Disorder Additional Past Medical History / Comment(s): PAD, peripheral neuropathy bilateral legs, overactive bladder, hyperparathyroidism, kidstones, gallstones, osteoporosis, cervical cancer/surgery, balance issues at times, back pain/scoliosis. History of Any Multi-Drug Resistant Organisms: None Reported Past Surgical History: Orthopedic Surgery Additional Past Surgical History / Comment(s): Cervix surgery, bone spur removed R great toe, bilateral leg angioplasty/stents, pseudocyst removed from pancreas Additional Past Anesthesia/Blood Transfusion Reaction / Comment(s): Pt has woken during surgery. Smoking Status: Former smoker - Past Family History Father Family Medical History: No Reported History Mother Family Medical History: Osteoarthritis (OA) Additional Family Medical History / Comment(s): Obesity Medications and Allergies Home Medications Medication Instructions Recorded Confirmed Type Albuterol Inhaler [Ventolin Hfa 1 puff INHALATION RT-QID 07/26/23 09/13/23 History Inhaler] Aspirin [Adult Low Dose Aspirin EC] 81 mg PO QAM 07/26/23 09/13/23 History Atorvastatin [Lipitor] 10 mg PO HS 07/26/23 09/13/23 History Baclofen 10 mg PO BID 07/26/23 09/13/23 History Cholecalciferol [Vitamin D3 (25 25 mcg PO QAM 07/26/23 09/13/23 History Mcg = 1000 Iu)] Clopidogrel [Plavix] 75 mg PO QAM 07/26/23 09/13/23 History DULoxetine HCL [Cymbalta] 60 mg PO QAM 07/26/23 09/13/23 History Docusate [Colace] 100 mg PO BID 07/26/23 09/13/23 History Fluticasone/Umeclidin/Vilanter 1 puff INHALATION RT-DAILY 07/26/23 09/13/23 History [Trelegy Ellipta 200-62.5-25] Ibuprofen 800 mg PO BID PRN 07/26/23 09/13/23 History LORazepam 1 mg PO BID PRN 07/26/23 09/13/23 History Loratadine 10 mg PO QAM 07/26/23 09/13/23 History Magnesium Hydroxide [Milk of 30 ml PO DAILY PRN 07/26/23 09/13/23 History Magnesia] Metoprolol Succinate [Metoprolol 12.5 mg PO PC-LUNCH 07/26/23 09/13/23 History Succinate ER] Montelukast [Singulair] 10 mg PO QAM 07/26/23 09/13/23 History Vit C/E/Zn/Coppr/Lutein/Zeaxan 2 tab PO BID 07/26/23 09/13/23 History [Preservision Areds 2 Softgel] amLODIPine BESYLATE 2.5 mg PO PC-LUNCH 07/26/23 09/13/23 History lisinopriL [Zestril] 10 mg PO HS 07/26/23 09/13/23 History traMADol HCL 50 mg PO BID PRN 07/26/23 09/13/23 History Gabapentin [Neurontin] 100 mg PO TID 09/13/23 09/13/23 History Oxybutynin Xl [Ditropan XL] 5 mg PO DAILY 09/13/23 09/13/23 History Propylene Glycol/Peg 400 [Systane 1 drop BOTH EYES QID PRN 09/13/23 09/13/23 History Ultra 0.4-0.3% Eye Drp] Sodium Chloride 5% Ophth Soln 1 drop BOTH EYES BID 09/13/23 09/13/23 History [Mary Anne 128] Allergies Allergy/AdvReac Type Severity Reaction Status Date / Time latex Allergy Rash/Hives Verified 09/13/23 09:36 airborne allergies Allergy congestion. Uncoded 09/12/23 23:21 Physical Exam Osteopathic Statement: *. No significant issues noted on an osteopathic struct ural exam other than those noted in the History and Physical/Consult. Vitals: Vital Signs Temp Pulse Pulse Resp BP Pulse Ox 09/14/23 09:31 80 09/14/23 09:22 82 09/14/23 07:55 98.5 F 74 17 159/76 95 09/14/23 02:00 98.1 F 74 18 168/84 96 09/13/23 21:06 78 09/13/23 20:57 77 09/13/23 20:00 98.1 F 71 22 155/85 09/13/23 17:18 98.6 F 77 16 136/73 96 09/13/23 16:42 71 09/13/23 16:35 68 Intake and Output 09/13/23 09/14/23 09/14/23 22:59 06:59 14:59 Intake Total 700 Output Total 1000 Balance -300 Intake: Intake, IV Titration 700 Amount Piperacillin-Tazobactam 3 100 .375 gm In Sodium Chloride 0.9% 100 ml @ 25 mls/hr IVPB Q8HR [facility] Rx# :[id number] Sodium Chloride 0.9% 1, 600 000 ml @ 75 mls/hr IV . [id number] [facility] Rx#:[id number] Output: Urine 1000 Other: Voiding Method External Catheter Weight 54.431 kg No acute distress, oriented 3. Currently on room air. HEENT examination is grossly unremarkable. Mucous membranes are moist. No oral lesions. Neck supple. Full range of motion. No adenopathy thyromegaly or neck vein distention. Cardiovascular examination reveals regular rhythm rate. S1-S2 normal. No S3 or S4. No discernible murmur noted. Heart rate 80 bpm. Lungs reveal diminished but clear breath sounds. No wheezes, rhonchi, or crackles. Room air saturation 96%. Abdomen soft, with tenderness, in the right upper quadrant. No masses. Extremities are intact. No cyanosis clubbing or edema. Skin is without rash or lesion. Neurologic examination is brief but nonfocal. Results - Laboratory Findings CBC and BMP: 09/12/23 23:21 09/12/23 23:21 PT/INR, D-dimer PT 10.3 sec (10.0-12.5) 09/12/23 23:21 INR 0.9 (<1.2) 09/12/23 23:21 Abnormal lab findings: Abnormal Labs 09/12/23 09/12/23 23:21 23:21 WBC 15.3 H Neutrophils # 11.4 H Sodium 127 L Total Protein 5.8 L - Diagnostic Findings Chest x-ray: image reviewed Assessment and Plan Assessment: Right upper quadrant abdominal pain, with a positive Santos's sign, secondary to acute on chronic gallbladder disease. COPD, stable, secondary to 40 to 50 years of tobacco use. Doubt pneumonia, right lower lobe changes, are atelectatic, and secondary to her right upper quadrant abdominal pain and gallbladder disease. Status post fall, with fracture of the left greater trochanter. History of gastroesophageal reflux disease. History of hypertension. History of hyperlipidemia. History of hyperparathyroidism, and kidney stones. History of osteoporosis. History of cervical cancer. Stress urinary incontinence. Plan: Plan dated September 14, 2023. The patient is currently evaluated, in the observation unit, room 161. The patient apparently is going to have gallbladder surgery tomorrow, for acute on chronic gallbladder disease. The patient presented with right upper quadrant abdominal pain, left hip pain, and losing balance, with falls. The patient was discovered to have a left greater trochanter fracture, and, is thought to have acute cholecystitis as well. The patient's chest x-ray shows some atelectatic changes at the right lung base. Her procalcitonin level is normal. I do not believe she has pneumonia. She does not need the current antibiotics that she is on, but may need antibiotics for her gallbladder. Will leave that up to surgery. Additional recommendations and suggestions are forthcoming. Time with Patient: Greater than 30
--- NOTE | 2023-09-14 14:12 | P.PN ---
Progress Note - Text Progress Note Date: 09/14/23 Patient still complains of upper quadrant pain. She is describes it as her biliary colic pain that she knows. She feels slightly better than yesterday. On exam vital signs appear stable. Abdomen is soft there is tenderness upper quadrant. Symptomatic cholelithiasis with possible cholecystitis. Patient will be scheduled for laparoscopic cholecystectomy in the a.m.
[2023-09-14 14:23] LABS: HCT 35.1 % (34.0-46.0); HGB 11.2 gm/dL (11.4-16.0); MCH 27.6 pg (25.0-35.0); MCHC 31.8 g/dL (31.0-37.0); MCV 86.7 fL (80.0-100.0); Mean Platelet Volume 7.2; Platelet Count 501 k/uL (150-450); RBC 4.05 m/uL (3.80-5.40); RDW 15.6 % (11.5-15.5); WBC 13.1 k/uL (3.8-10.6)
[2023-09-14 14:44] LABS: African American GFR (CKD) >90 (>60 ml/min/1.73 sqM); Anion Gap 10 mmol/L; Blood Urea Nitrogen 11 mg/dL (7-17); Carbon Dioxide 17 mmol/L (22-30); Chloride 109 mmol/L (98-107); Glucose 95 mg/dL (74-99); Non-African American GFR(CKD) 81 (>60 ml/min/1.73 sqM); Potassium 3.9 mmol/L (3.5-5.1); Sodium 136 mmol/L (137-145)
[2023-09-14 15:47] VITALS: BMI 21.9
[2023-09-14] MEDS: SYMBICORT 160-4.5 MCG INHALER INHALATION SCH (20:56)
[2023-09-15 07:00] LABS: African American GFR (CKD) >90 (>60 ml/min/1.73 sqM); Anion Gap 7 mmol/L; Blood Urea Nitrogen 17 mg/dL (7-17); Calcium 8.9 mg/dL (8.4-10.2); Carbon Dioxide 17 mmol/L (22-30); Chloride 109 mmol/L (98-107); Glucose 107 mg/dL (74-99); Non-African American GFR(CKD) 83 (>60 ml/min/1.73 sqM); Potassium 3.4 mmol/L (3.5-5.1); Sodium 133 mmol/L (137-145)
[2023-09-15] MEDS: POTASSIUM CHLORIDE ER 20 MEQ TAB.ER PO STA (08:47)
--- NOTE | 2023-09-15 10:57 | P.PN ---
Subjective Progress Note Date: 09/15/23 Principal diagnosis: Cholecystitis. Pulmonary consult dated September 14, 2023. This is a 73-year-old female who is seen today in the observation unit, room 161. She is currently on room air. The patient apparently came into the hospital complaining of losing balance, and pain in her right side, radiating to the back. The patient's chest x-ray shows some atelectasis in my opinion at the right lung base, likely because of her underlying gallbladder disease. She apparently is scheduled to have a cholecystectomy, tomorrow. Her procalcitonin level was 0.05, which is normal. She was placed on Rocephin and azithromycin. She did smoke for 40 to 50 years, at 1 pack a day. She does have established COPD and she sees my partner Dr. Kwon. For her COPD she uses Trelegy 200, 1 puff daily, and albuterol, as needed. Patient was actually admitted on September 11. The patient's past medical history is positive for COPD, gastroesophageal reflux disease, hyperlipidemia, hypertension, peripheral neuropathy, peripheral artery disease, overactive bladder, hyperparathyroidism, kidney stones, osteoporosis, cervical cancer, as well as anxiety. The patient currently does not smoke. Current labs include a white count of 15.3, hemoglobin 12.3, hematocrit 37.9, and a platelet count of 439,000. Coagulation studies were normal. Sodium 127, potassium 3.6, chlorides 98, CO2 22, BUN 12, creatinine 0.78. Glucose is normal. Procalcitonin level is 0.05. Urine is negative. She tested negative for influenza, RSV, and coronavirus. Blood cultures are currently negative. Gallbladder ultrasound shows a mildly hydropic gallbladder without biliary duct dilatation. A HIDA scan was recommended. Progress note dated September 15, 2023. 73-year-old female seen in consultation yesterday. She is seen again today in room 161, in the observation unit. The patient was essentially admitted with right upper quadrant abdominal pain. She also fell, and injured her left hip. The patient is apparently scheduled to have cholecystectomy today. Currently, she is on room air. She is getting saline at 75 cc an hour. I believe she is on Zosyn. Labs include a sodium 133, potassium 3.4, chlorides 109, CO2 17, BUN 17, and creatinine 0.73. Glucose is 107. Calcium is 8.9. Objective - Vital Signs Vital signs: Vital Signs Temp 98.2 F 09/15/23 08:00 Pulse 70 09/15/23 08:12 Resp 15 09/15/23 08:00 BP 144/72 09/15/23 08:00 Pulse Ox 95 09/15/23 08:00 FiO2 Intake & Output 09/14/23 09/15/23 09/15/23 18:59 06:59 18:59 Output Total 700 400 Balance -700 -400 Weight 54.431 kg Output: Urine 700 400 Other: Voiding Method External Catheter - Exam No acute distress, oriented 3. Currently on room air. HEENT examination is grossly unremarkable. Mucous membranes are moist. No oral lesions. Neck supple. Full range of motion. No adenopathy thyromegaly or neck vein distention. Cardiovascular examination reveals regular rhythm rate. S1-S2 normal. No S3 or S4. No discernible murmur noted. Heart rate 70 bpm. Lungs reveal diminished but clear breath sounds. No wheezes, rhonchi, or crackles. Room air saturation 95 %. Abdomen soft, with tenderness, in the right upper quadrant. No masses. Extremities are intact. No cyanosis clubbing or edema. Skin is without rash or lesion. Neurologic examination is brief but nonfocal. - Labs CBC & Chem 7: 09/14/23 14:03 09/15/23 06:28 Labs: Abnormal Lab Results - Last 24 Hours (Table) 09/14/23 09/14/23 09/15/23 Range/Units 14:03 14:03 06:28 WBC 13.1 H (3.8-10.6) k/uL Hgb 11.2 L (11.4-16.0) gm/dL RDW 15.6 H (11.5-15.5) % Plt Count 501 H (150-450) k/uL Sodium 136 L 133 L (137-145) mmol/L Potassium 3.4 L (3.5-5.1) mmol/L Chloride 109 H 109 H (98-107) mmol/L Carbon Dioxide 17 L 17 L (22-30) mmol/L Glucose 107 H (74-99) mg/dL Microbiology - Last 24 Hours (Table) 09/13/23 06:00 Blood Culture - Preliminary Blood 06/03/24 05:45 Blood Culture - Preliminary Blood Assessment and Plan Assessment: Right upper quadrant abdominal pain, with a positive Santos's sign, secondary to acute on chronic gallbladder disease. COPD, stable, secondary to 40 to 50 years of tobacco use. Doubt pneumonia, right lower lobe changes, are atelectatic, and secondary to her right upper quadrant abdominal pain and gallbladder disease. Status post fall, with fracture of the left greater trochanter. History of gastroesophageal reflux disease. History of hypertension. History of hyperlipidemia. History of hyperparathyroidism, and kidney stones. History of osteoporosis. History of cervical cancer. Stress urinary incontinence. Plan: Plan dated September 14, 2023. The patient is currently evaluated, in the observation unit, room 161. The patient apparently is going to have gallbladder surgery tomorrow, for acute on chronic gallbladder disease. The patient presented with right upper quadrant abdominal pain, left hip pain, and losing balance, with falls. The patient was discovered to have a left greater trochanter fracture, and, is thought to have acute cholecystitis as well. The patient's chest x-ray shows some atelectatic changes at the right lung base. Her procalcitonin level is normal. I do not believe she has pneumonia. She does not need the current antibiotics that she is on, but may need antibiotics for her gallbladder. Will leave that up to surgery. Additional recommendations and suggestions are forthcoming. Plan dated September 15, 2023. The patient is scheduled for a cholecystectomy today. The patient was seen today in room 161. Her respiratory status is stable. She is on room air. She is receiving saline at 75 cc an hour. She is currently on Zosyn. We will continue to follow make recommendations along the way. Labs, x-rays, medications are reviewed. Prognosis is thought to be generally good. Time with Patient: Less than 30
--- NOTE | 2023-09-15 12:54 | P.PN ---
Subjective Progress Note Date: 09/15/23 CHIEF COMPLAINT: Cholecystitis HISTORY OF PRESENT ILLNESS: Patient initially scheduled for laparoscopic c holecystectomy today but she did receive Plavix last night. Surgery canceled for today. Patient does continue to complain of right upper quadrant abdominal pain that radiates to her back with nausea. Afebrile. WBC is down from 15.3- 13.1 Hgb 11.2 platelets 501 potassium 3.4 replaced PHYSICAL EXAM: VITAL SIGNS: Reviewed. GENERAL: Well-developed in no acute distress. ABDOMEN: Soft. Nondistended. Tenderness with palpation to right upper quadrant NEUROLOGIC: Alert and oriented. Cranial nerves II through XII grossly intact. ASSESSMENT: 1. Acute cholecystitis 2. Cholelithiasis PLAN: -Patient is rescheduled for laparoscopic cholecystectomy tomorrow with Dr. Garvin. She received Plavix yesterday. -Plavix has been discontinued -Okay for low-fat diet today -Potassium replaced -N.p.o. after midnight -Continue antibiotics Physician Finishing Supervisor note has been reviewed by physician. Signing provider agrees with the documented findings, assessment, and plan of care. Objective - Vital Signs Vital signs: Vital Signs Temp 98.2 F 09/15/23 08:00 Pulse 70 09/15/23 08:12 Resp 15 09/15/23 08:00 BP 144/72 09/15/23 08:00 Pulse Ox 95 09/15/23 08:00 FiO2 Intake & Output 09/14/23 09/15/23 09/15/23 18:59 06:59 18:59 Output Total 700 400 Balance -700 -400 Weight 54.431 kg Output: Urine 700 400 Other: Voiding Method External Catheter - Labs CBC & Chem 7: 09/14/23 14:03 09/15/23 06:28 Labs: Abnormal Lab Results - Last 24 Hours (Table) 09/14/23 09/14/23 09/15/23 Range/Units 14:03 14:03 06:28 WBC 13.1 H (3.8-10.6) k/uL Hgb 11.2 L (11.4-16.0) gm/dL RDW 15.6 H (11.5-15.5) % Plt Count 501 H (150-450) k/uL Sodium 136 L 133 L (137-145) mmol/L Potassium 3.4 L (3.5-5.1) mmol/L Chloride 109 H 109 H (98-107) mmol/L Carbon Dioxide 17 L 17 L (22-30) mmol/L Glucose 107 H (74-99) mg/dL Microbiology - Last 24 Hours (Table) 09/13/23 06:00 Blood Culture - Preliminary Blood 09/13/23 05:45 Blood Culture - Preliminary Blood
--- NOTE | 2023-09-15 15:42 | P.PN ---
Progress Note - Text Progress Note Date: 09/15/23 Patient is a pleasant 73-year-old female came with complaints of multiple falls. Patient was recently started on Neurontin and believes that Neurontin is causing her falls. Patient has multiple other complaints as well patient is complaining also of left hip pain hip x-ray did not show any fracture, I will obtain a CT of the hip. Patient is unable to move the hip at all patient does have gallstones and patient is complaining of severe pain in the right upper quadrant. Patient does have tenderness in the right upper quadrant ultrasound is being obtained and given surgery is being consulted. Patient has scoliosis and is on scheduled Flexeril without that patient has severe muscle spasms. Patient also has neuropathic symptoms patient is also on Cymbalta along with Neurontin for that patient apparently complained of some dizziness to the ER doctor although she denies any such complaints. Patient used to smoke quit smoking is complaining of cough with some greenish sputum production chest x-ray did not show any pneumonia. Although it was read as a right lower lobe pneumonia. I will obtain a procalcitonin level patient was started on azithromycin. Patient has slight wheezing on exam. Patient is also hyponatremic with a serum sodium of 127 09/14/2023 Patient is evaluated in follow up today on the medical floor. Her main complaint is right flank and right upper quadrant pain states it is sharp and aching rating 10/10. States the pain is greater than the pain to the left hip. Patient is receiving norco 7.5 mg and IV toradol. There is concern for Right lower lobe pneumonia, procalcitonin level is normal. Viral panel has been ordered. Patient is complaining of shortness of breath and wheezing today does have scattered wheezing on exam. Gallbladder ultrasound reveals mild hydropic gallbladder with concern for acute on chronic cholecystitis. General surgery following and patient is currently on IV zosyn. The hip CT reveals left greater trochanter fracture, minimally communited, and not significantly displaced. No new blood work from today. September 15, 2023: Sitting up in bed. Right upper quadrant pain. Patient received Plavix yesterday. Surgery rescheduled for tomorrow. Active Medications Acetaminophen (Acetaminophen Tab 325 Mg Tab) 650 mg PO Q6HR PRN PRN Reason: Mild Pain or Fever > 100.5 Hydrocodone Bitart/Acetaminophen (Hydrocodone/Apap 7.5-325mg 1 Each Tab) 1 each PO Q6HR PRN PRN Reason: Pain Last Admin: 09/14/23 19:44 Dose: 1 each Albuterol/Ipratropium (Ipratropium-Albuterol 3 Ml Neb) 3 ml INHALATION RT-QID PRN PRN Reason: Shortness Of Breath Or Wheezing Albuterol/Ipratropium (Ipratropium-Albuterol 3 Ml Neb) 3 ml INHALATION RT-QID [facility] Last Admin: 09/15/23 15:01 Dose: Not Given Aspirin (Aspirin 81 Mg) 81 mg PO QAM [facility] Last Admin: 09/15/23 11:46 Dose: 81 mg Atorvastatin Calcium (Atorvastatin 10 Mg Tab) 10 mg PO HS [facility] Last Admin: 09/14/23 19:45 Dose: 10 mg Baclofen (Baclofen 10 Mg Tab) 10 mg PO BID [facility] Last Admin: 09/15/23 11:47 Dose: 10 mg Budesonide/Formoterol Fumarate (Symbicort 160-4.5 Mcg Inhaler) 2 puff INHALATION RT-BID [facility] Last Admin: 09/15/23 07:58 Dose: 2 puff Docusate Sodium (Docusate 100 Mg Cap) 100 mg PO BID [facility] Last Admin: 09/15/23 11:48 Dose: 100 mg Duloxetine HCl (Duloxetine Hcl 60 Mg Capsule.Dr) 60 mg PO QAM [facility] Last Admin: 09/15/23 11:46 Dose: 60 mg Enoxaparin Sodium (Enoxaparin 40 Mg/0.4 Ml Syringe) 40 mg SQ DAILY [facility] Last Admin: 09/15/23 08:52 Dose: Not Given Famotidine (Famotidine 20 Mg Tab) 20 mg PO BID [facility] Last Admin: 09/15/23 11:47 Dose: 20 mg Sodium Chloride (Saline 0.9%) 1,000 mls @ 75 mls/hr IV .[id number] [facility] Last Admin: 09/15/23 08:47 Dose: 75 mls/hr Piperacillin Sod/Tazobactam (Sod 3.375 gm/ Sodium Chloride) 100 mls @ 25 mls/hr IVPB Q8HR [facility]; Protocol Last Admin: 09/15/23 08:49 Dose: 25 mls/hr Ketorolac Tromethamine (Ketorolac 15 Mg/Ml 1 Ml Vial) 15 mg IVP Q6HR PRN PRN Reason: Pain Stop: 09/18/23 11:23 Last Admin: 09/14/23 12:45 Dose: 15 mg Lisinopril (Lisinopril 10 Mg Tab) 10 mg PO HS [facility] Last Admin: 09/14/23 19:45 Dose: 10 mg Loratadine (Loratadine 10 Mg Tab) 10 mg PO QAM [facility] Last Admin: 09/15/23 11:46 Dose: 10 mg Lorazepam (Lorazepam 1 Mg Tab) 1 mg PO BID PRN PRN Reason: Anxiety Last Admin: 09/13/23 21:38 Dose: 1 mg Magnesium Hydroxide (Magnesium Hydroxide 2,400 Mg/30 Ml Cup) 2,400 mg PO DAILY PRN PRN Reason: Constipation Metoprolol Succinate (Metoprolol Succinate (Er) 25 Mg Tab.Er.24h) 12.5 mg PO PC-LUNCH [facility] Last Admin: 09/15/23 14:29 Dose: 12.5 mg Montelukast Sodium ([facility]elukast 10 Mg Tab) [facility] [place] Admin: 09/15/23 11:46 Dose: 10 mg Naloxone HCl (Naloxone 0.4 Mg/Ml 1 Ml Vial) 0.2 mg IV Q2M PRN PRN Reason: Opioid Reversal Oxybutynin Chloride (Oxybutynin Xl 5 Mg Tab.Er.24) 5 mg PO DAILY [facility] Last Admin: 09/15/23 11:46 Dose: 5 mg Prednisone (Prednisone 20 Mg Tab) 40 mg PO DAILY [facility] Last Admin: 09/15/23 11:46 Dose: 40 mg Sodium Chloride (Sodium Chloride 5% Ophth Drops 15 Ml Btl) 1 drops BOTH EYES BID [facility] Last Admin: 09/15/23 08:49 Dose: 1 drops Tramadol HCl (Tramadol 50 Mg Tab) 50 mg PO BID PRN PRN Reason: Pain On examination: VITAL SIGNS: [8.2, 64, 15, 144/72, 95% room air] GENERAL APPEARANCE: Lying in bed awake not in distress HEENT: Normal external appearance of nose and ear. Oral cavity normal EYES: Pupils equal. Conjunctiva normal. NECK: JVD not raised. Mass not palpable. RESPIRATORY: Respiratory effort normal. Lungs decreased breath sounds. CARDIOVASCULAR: First and second sounds normal. No edema. ABDOMEN: Soft. Liver and spleen not palpable. . No mass palpable. Quadrant tenderness PSYCHIATRY: Alert and oriented x3. Mood and affect normal. INVESTIGATIONS, reviewed in the clinical context: September 15, 2023: Sodium 133 potassium 3.4 creatinine 0.73 September 13 white count 13.1 hemoglobin 11.2 platelets 501 Bed ultrasound: Mild hydropic gallbladder. 2 lesions of the right kidney. Assessment and plan -Multiple falls can be secondary to Neurontin which will be discontinued. Continue with Cymbalta. Patient apparently complained of dizziness amlodipine is on hold, dizziness has resolved. BP not low. -Acute left greater tronchater fracture secondary to fall. Seen by Dr. Rosario. Protected weightbearing and utilize a walker at all times. Physical therapy. No surgical intervention. Follow-up outpatient . -Right upper quadrant abdominal pain likely due to acute on chronic cholecysti tis, US reveals a mildly hydropic gallbladder: Slow to respond IV zosyn, Dr Garvin following. Because patient received Plavix yesterday surgery rescheduled for tomorrow -COPD with acute exacerbation and bronchitis, mild right lower lobe infiltrate noted on exam. DuoNeb 4 times daily. Symbicort. Prednisone 40 mg -Scoliosis -Generalized asthenia physical therapy and Occupational Therapy evaluation -Gastroesophageal reflux disease -Hyperlipidemia Lipitor -Peripheral vascular disease -Peripheral neuropathy Cymbalta. Neurontin. Plavix -Osteoporosis -Overactive bladder -Anxiety Ativan as needed. -Full code Being scheduled for surgery tomorrow. Other medications to continue. N.p.o. after midnight.
[2023-09-15] MEDS ORDERED: LIDOCAINE 1% (10MG/ML) FOR IV START INTRADERMA PRN (20:21)
[2023-09-15] MEDS: ONDANSETRON 4 MG/2 ML VIAL IVP ONE (20:55)
[2023-09-15] MEDS: DEXAMETHASONE SOD PHOSPHATE 4 MG/ML 1 ML VIAL IV ONE (20:55)
[2023-09-15] MEDS: LACTATED RINGERS 1,000 ML IV SCH (21:06)
[2023-09-16 06:47] LABS: Basophils % (A) 0 %; Eosinophils % (A) 0 %; HCT 36.6 % (34.0-46.0); HGB 11.7 gm/dL (11.4-16.0); Lymphocytes # (A) 1.7 k/uL (1.0-4.8); Lymphocytes % (A) 13 %; MCH 27.7 pg (25.0-35.0); MCHC 32.1 g/dL (31.0-37.0); MCV 86.4 fL (80.0-100.0); Mean Platelet Volume 7.5; Monocytes # (A) 0.7 k/uL (0-1.0); Monocytes % (A) 6 %; Neutrophils # (A) 10.2 k/uL (1.3-7.7); Neutrophils % (A) 80 %; Platelet Count 513 k/uL (150-450); RBC 4.23 m/uL (3.80-5.40); RDW 15.6 % (11.5-15.5); WBC 12.7 k/uL (3.8-10.6)
[2023-09-16] MEDS ORDERED: HYDROmorphone 0.5 MG/0.5 ML SYRINGE IVP PRN (07:00)
[2023-09-16] MEDS ORDERED: fentaNYL (PF) 50 MCG/ML 2 ML AMP IV PRN (07:00)
[2023-09-16 07:06] LABS: African American GFR (CKD) 81 (>60 ml/min/1.73 sqM); Anion Gap 7 mmol/L; Blood Urea Nitrogen 17 mg/dL (7-17); Calcium 9.1 mg/dL (8.4-10.2); Carbon Dioxide 18 mmol/L (22-30); Chloride 108 mmol/L (98-107); Glucose 116 mg/dL (74-99); Non-African American GFR(CKD) 70 (>60 ml/min/1.73 sqM); Potassium 4.3 mmol/L (3.5-5.1); Sodium 133 mmol/L (137-145)
--- NOTE | 2023-09-16 08:23 | CDI ---
Documentation Clarification Form Date: 09/15/2023 From: Idania Mireles Phone: [phone] Admit Date: 09/13/2023 06:06:00 AM Patient Name: Piedad Dey Visit Number: [id number] Discharge Date: ATTENTION: The Clinical Documentation Specialists (CDI) and [facility] Coding Staff appreciate your assistance in clarifying documentation. Please respond to the clarification below the line at the bottom and electronically sign. The CDI & [facility] Coding staff will review the response and follow-up if needed. Please note: Queries are made part of the Legal Health Record. If you have any questions, please contact the author of this message via ITS. Dr. Rich Hanson: Conflicting documentation has been found in the medical record. As attending physician, please provide clarification. 09/12 H&P, Assessment and plan: "COPD with acute exacerbation and bronchitis" 09/13 Pulmonology consult, Assessment: "COPD, stable, secondary to 40 to 50 years of tobacco use." History/Risk Factors: 73 year old female with a history of COPD, asthma, HTN, PAD who presents after fall Clinical Indicators: 09/11 Triage VS: 142/84, 98.3, 77, 18, 95% room air 09/12 Chest XRAY, Findings: "Lungs: Right lower lobe infiltrate." 09/13 Pulmonology consult, HPI: "Doubt pneumonia, right lower lobe changes, are atelectatic, and secondary to her right upper quadrant abdominal pain and gallbladder disease." 09/13 IM PN, Subjective: "09/14/2023 Patient is complaining of shortness of breath and wheezing today does have scattered wheezing on exam." Treatment: Duoneb 0.5mg-3mg nebulizer QID start 09/12 Duoneb 0.5mg-3mg nebulizer QID prn-no dosed given Symbicort 80-4.5Mcg inhaler 2puffs BID 09/12-09/13 Please clarify which diagnosis is most appropriate: [ + ] COPD in acute exacerbation with bronchitis [ ] COPD in acute exacerbation with bronchitis ruled out [ ] Other (please specify) [ ] Unable to determine MTDD
--- NOTE | 2023-09-16 10:46 | P.PN ---
Subjective Progress Note Date: 09/16/23 Principal diagnosis: Cholecystitis. Pulmonary consult dated September 14, 2023. This is a 73-year-old female who is seen today in the observation unit, room 161. She is currently on room air. The patient apparently came into the hospital complaining of losing balance, and pain in her right side, radiating to the back. The patient's chest x-ray shows some atelectasis in my opinion at the right lung base, likely because of her underlying gallbladder disease. She apparently is scheduled to have a cholecystectomy, tomorrow. Her procalcitonin level was 0.05, which is normal. She was placed on Rocephin and azithromycin. She did smoke for 40 to 50 years, at 1 pack a day. She does have established COPD and she sees my partner Dr. Kwon. For her COPD she uses Trelegy 200, 1 puff daily, and albuterol, as needed. Patient was actually admitted on September 11. The patient's past medical history is positive for COPD, gastroesophageal reflux disease, hyperlipidemia, hypertension, peripheral neuropathy, peripheral artery disease, overactive bladder, hyperparathyroidism, kidney stones, osteoporosis, cervical cancer, as well as anxiety. The patient currently does not smoke. Current labs include a white count of 15.3, hemoglobin 12.3, hematocrit 37.9, and a platelet count of 439,000. Coagulation studies were normal. Sodium 127, potassium 3.6, chlorides 98, CO2 22, BUN 12, creatinine 0.78. Glucose is normal. Procalcitonin level is 0.05. Urine is negative. She tested negative for influenza, RSV, and coronavirus. Blood cultures are currently negative. Gallbladder ultrasound shows a mildly hydropic gallbladder without biliary duct dilatation. A HIDA scan was recommended. Progress note dated September 15, 2023. 73-year-old female seen in consultation yesterday. She is seen again today in room 161, in the observation unit. The patient was essentially admitted with right upper quadrant abdominal pain. She also fell, and injured her left hip. The patient is apparently scheduled to have cholecystectomy today. Currently, she is on room air. She is getting saline at 75 cc an hour. I believe she is on Zosyn. Labs include a sodium 133, potassium 3.4, chlorides 109, CO2 17, BUN 17, and creatinine 0.73. Glucose is 107. Calcium is 8.9. Progress note dated September 16, 2023. 73-year-old female seen today in room 161. She is still awaiting gallbladder surgery. She is on room air. She is getting Zosyn, and saline at 75 cc an hour. The patient states that her breathing is much improved. She denies any significant or worsening shortness of breath, cough, wheezing, chest tightness, or phlegm production. The patient is on the operating room schedule for today, although I am not sure what time her surgery will be done. White count is 12.7, hemoglobin 11.7, hematocrit 36.6, platelet count 513,000. Sodium 133, potassium 4.3, chlorides 108, CO2 18, BUN 17, creatinine 0.84. Glucose is 116. Objective - Vital Signs Vital signs: Vital Signs Temp 98.1 F 09/16/23 07:44 Pulse 63 09/16/23 07:44 Resp 17 09/16/23 07:44 BP 129/68 09/16/23 07:44 Pulse Ox 96 09/16/23 07:44 FiO2 Intake & Output 09/15/23 09/16/23 09/16/23 18:59 06:59 18:59 Intake Total 240 Balance 240 Intake: Oral 240 Other: Voiding Method External Catheter # Voids 2 1 - Exam No acute distress, oriented 3. Currently on room air. HEENT examination is grossly unremarkable. Mucous membranes are moist. No oral lesions. Neck supple. Full range of motion. No adenopathy thyromegaly or neck vein distention. Cardiovascular examination reveals regular rhythm rate. S1-S2 normal. No S3 or S4. No discernible murmur noted. Heart rate 63 bpm. Lungs reveal diminished but clear breath sounds. No wheezes, rhonchi, or crackles. Room air saturation 96 %. Abdomen soft, with tenderness, in the right upper quadrant. No masses. Extremities are intact. No cyanosis clubbing or edema. Skin is without rash or lesion. Neurologic examination is brief but nonfocal. - Labs CBC & Chem 7: 09/16/23 06:07 09/16/23 06:07 Labs: Abnormal Lab Results - Last 24 Hours (Table) 09/16/23 09/16/23 Range/Units 06: 06: WBC 12.7 H (3.8-10.6) k/uL RDW 15.6 H (11.5-15.5) % Plt Count 513 H (150-450) k/uL Neutrophils # 10.2 H (1.3-7.7) k/uL Sodium 133 L (137-145) mmol/L Chloride 108 H (98-107) mmol/L Carbon Dioxide 18 L (22-30) mmol/L Glucose 116 H (74-99) mg/dL Microbiology - Last 24 Hours (Table) 09/13/23 06:00 Blood Culture - Preliminary Blood 09/13/23 05:45 Blood Culture - Preliminary Blood Assessment and Plan Assessment: Right upper quadrant abdominal pain, with a positive Santos's sign, secondary to acute on chronic gallbladder disease. COPD, stable, secondary to 40 to 50 years of tobacco use. Doubt pneumonia, right lower lobe changes, are atelectatic, and secondary to her right upper quadrant abdominal pain and gallbladder disease. Status post fall, with fracture of the left greater trochanter. History of gastroesophageal reflux disease. History of hypertension. History of hyperlipidemia. History of hyperparathyroidism, and kidney stones. History of osteoporosis. History of cervical cancer. Stress urinary incontinence. Plan: Plan dated September 14, 2023. The patient is currently evaluated, in the observation unit, room 161. The patient apparently is going to have gallbladder surgery tomorrow, for acute on chronic gallbladder disease. The patient presented with right upper quadrant abdominal pain, left hip pain, and losing balance, with falls. The patient was discovered to have a left greater trochanter fracture, and, is thought to have acute cholecystitis as well. The patient's chest x-ray shows some atelectatic changes at the right lung base. Her procalcitonin level is normal. I do not believe she has pneumonia. She does not need the current antibiotics that she is on, but may need antibiotics for her gallbladder. Will leave that up to surgery. Additional recommendations and suggestions are forthcoming. Plan dated September 15, 2023. The patient is scheduled for a cholecystectomy today. The patient was seen today in room 161. Her respiratory status is stable. She is on room air. She is receiving saline at 75 cc an hour. She is currently on Zosyn. We will continue to follow make recommendations along the way. Labs, x-rays, medications are reviewed. Prognosis is thought to be generally good. Plan dated September 16, 2023. The patient will likely have gallbladder surgery today. The patient continues on Zosyn, room air, and saline at 75 cc an hour. Her breathing is much improved. Hopefully, the patient will have her laparoscopic cholecystectomy today. Her only complaint is right upper quadrant abdominal pain. We will continue to follow make recommendations along the way. Time with Patient: Less than 30
--- NOTE | 2023-09-16 12:15 | P.PN ---
Subjective Progress Note Date: 09/16/23 Principal diagnosis: Left greater trochanteric fracture Patient did well over night. Patient denies left hip pain at time of exam. Patient states they are having a cholecystectomy today. Objective - Vital Signs Vital signs: Vital Signs Temp 98.1 F 09/16/23 07:44 Pulse 63 09/16/23 07:44 Resp 17 09/16/23 07:44 BP 129/68 09/16/23 07:44 Pulse Ox 96 09/16/23 07:44 FiO2 Intake & Output 09/15/23 09/16/23 09/16/23 18:59 06:59 18:59 Intake Total 240 Balance 240 Intake: Oral 240 Other: Voiding Method External Catheter External Catheter # Voids 2 1 - Exam Patient was resting comfortably in bed today, no acute distress. Skin over the left hip is without scars, lesions or deformity. Left extremity is without obvious swelling. Left thigh and calf are soft. No pain with PROM of left him. No pain with palpation of the left hip, thigh, knee, leg, ankle or foot. Neurovascular status of bilateral lower extremities is intact. - Labs CBC & Chem 7: 09/16/23 06:07 09/16/23 06:07 Labs: Abnormal Lab Results - Last 24 Hours (Table) 09/16/23 09/16/23 Range/Units 06:07 06:07 WBC 12.7 H (3.8-10.6) k/uL RDW 15.6 H (11.5-15.5) % Plt Count 513 H (150-450) k/uL Neutrophils # 10.2 H (1.3-7.7) k/uL Sodium 133 L (137-145) mmol/L Chloride 108 H (98-107) mmol/L Carbon Dioxide 18 L (22-30) mmol/L Glucose 116 H (74-99) mg/dL Microbiology - Last 24 Hours (Table) 09/13/23 06:00 Blood Culture - Preliminary Blood 09/13/23 05:45 Blood Culture - Preliminary Blood Assessment and Plan (1) Fracture of greater trochanter of left femur Current Visit: Yes Status: Acute Code(s): S72.112A - DISP FX OF GREATER TROCHANTER OF LEFT FEMUR, INIT SNOMED Code(s): 035291239 Plan: 1. Imaging is reviewed. Patient is to protect her weightbearing and utilize a walker at all times. 2. Recommend physical therapy for mobilization. 3. There is no surgical intervention planned. Patient may follow-up as an outpatient.
--- NOTE | 2023-09-16 12:56 | P.PN ---
Subjective Progress Note Date: 09/16/23 CHIEF COMPLAINT: Cholecystitis HISTORY OF PRESENT ILLNESS: Patient continues to complain of right upper q uadrant abdominal pain. Patient scheduled for surgery today. Afebrile. WBC is down from 13.1-12.7 k 3.4 up to 4.3 PHYSICAL EXAM: VITAL SIGNS: Reviewed. GENERAL: Well-developed in no acute distress. ABDOMEN: Soft. Nondistended. Tenderness with palpation to right upper quadrant NEUROLOGIC: Alert and oriented. Cranial nerves II through XII grossly intact. ASSESSMENT: 1. Acute cholecystitis 2. Cholelithiasis PLAN: -Patient is scheduled for laparoscopic cholecystectomy today with Dr. Garvin. -Continue antibiotics -keep patient NPO -Hold Plavix Physician Contestant Coordinator note has been reviewed by physician. Signing provider agrees with the documented findings, assessment, and plan of care. Objective - Vital Signs Vital signs: Vital Signs Temp 98.1 F 09/16/23 07:44 Pulse 63 09/16/23 07:44 Resp 17 09/16/23 07:44 BP 129/68 09/16/23 07:44 Pulse Ox 96 09/16/23 07:44 FiO2 Intake & Output 09/15/23 09/16/23 09/16/23 18:59 06:59 18:59 Intake Total 240 Balance 240 Intake: Oral 240 Other: Voiding Method External Catheter External Catheter # Voids 2 1 - Labs CBC & Chem 7: 09/16/23 06:07 09/16/23 06:07 Labs: Abnormal Lab Results - Last 24 Hours (Table) 09/16/23 09/16/23 Range/Units 06:07 06:07 WBC 12.7 H (3.8-10.6) k/uL RDW 15.6 H (11.5-15.5) % Plt Count 513 H (150-450) k/uL Neutrophils # 10.2 H (1.3-7.7) k/uL Sodium 133 L (137-145) mmol/L Chloride 108 H (98-107) mmol/L Carbon Dioxide 18 L (22-30) mmol/L Glucose 116 H (74-99) mg/dL Microbiology - Last 24 Hours (Table) 09/13/23 06:00 Blood Culture - Preliminary Blood 09/13/23 05:45 Blood Culture - Preliminary Blood
--- NOTE | 2023-09-16 15:32 | P.PN ---
Progress Note - Text Progress Note Date: 09/16/23 Patient is a pleasant 73-year-old female came with complaints of multiple falls. Patient was recently started on Neurontin and believes that Neurontin is causing her falls. Patient has multiple other complaints as well patient is complaining also of left hip pain hip x-ray did not show any fracture, I will obtain a CT of the hip. Patient is unable to move the hip at all patient does have gallstones and patient is complaining of severe pain in the right upper quadrant. Patient does have tenderness in the right upper quadrant ultrasound is being obtained and given surgery is being consulted. Patient has scoliosis and is on scheduled Flexeril without that patient has severe muscle spasms. Patient also has neuropathic symptoms patient is also on Cymbalta along with Neurontin for that patient apparently complained of some dizziness to the ER doctor although she denies any such complaints. Patient used to smoke quit smoking is complaining of cough with some greenish sputum production chest x-ray did not show any pneumonia. Although it was read as a right lower lobe pneumonia. I will obtain a procalcitonin level patient was started on azithromycin. Patient has slight wheezing on exam. Patient is also hyponatremic with a serum sodium of 127 09/14/2023 Patient is evaluated in follow up today on the medical floor. Her main complaint is right flank and right upper quadrant pain states it is sharp and aching rating 10/10. States the pain is greater than the pain to the left hip. Patient is receiving norco 7.5 mg and IV toradol. There is concern for Right lower lobe pneumonia, procalcitonin level is normal. Viral panel has been ordered. Patient is complaining of shortness of breath and wheezing today does have scattered wheezing on exam. Gallbladder ultrasound reveals mild hydropic gallbladder with concern for acute on chronic cholecystitis. General surgery following and patient is currently on IV zosyn. The hip CT reveals left greater trochanter fracture, minimally communited, and not significantly displaced. No new blood work from today. September 15, 2023: Sitting up in bed. Right upper quadrant pain. Patient received Plavix yesterday. Surgery rescheduled for tomorrow. September 16, 2023: Patient was seen earlier this afternoon. Sitting up in bed. Having right upper abdominal pain. NPO. Pending surgery. Breathing better. Patient is add-on for surgery Active Medications Acetaminophen (Acetaminophen Tab 325 Mg Tab) 650 mg PO Q6HR PRN PRN Reason: Mild Pain or Fever > 100.5 Hydrocodone Bitart/Acetaminophen (Hydrocodone/Apap 7.5-325mg 1 Each Tab) 1 each PO Q6HR PRN PRN Reason: Pain Last Admin: 09/15/23 20:58 Dose: 1 each Albuterol/Ipratropium (Ipratropium-Albuterol 3 Ml Neb) 3 ml INHALATION RT-QID PRN PRN Reason: Shortness Of Breath Or Wheezing Albuterol/Ipratropium (Ipratropium-Albuterol 3 Ml Neb) 3 ml INHALATION RT-QID [facility] Last Admin: 09/16/23 12:29 Dose: Not Given Aspirin (Aspirin 81 Mg) 81 mg PO QAM [facility] Last Admin: 09/16/23 10:37 Dose: Not Given Atorvastatin Calcium (Atorvastatin 10 Mg Tab) 10 mg PO HS [facility] Last Admin: 09/15/23 20:55 Dose: 10 mg Baclofen (Baclofen 10 Mg Tab) 10 mg PO BID [facility] Last Admin: 09/16/23 10:37 Dose: Not Given Budesonide/Formoterol Fumarate (Symbicort 160-4.5 Mcg Inhaler) 2 puff INHALATION RT-BID [facility] Last Admin: 09/16/23 08:32 Dose: 2 puff Docusate Sodium (Docusate 100 Mg Cap) 100 mg PO BID [facility] Last Admin: 09/16/23 10:37 Dose: Not Given Duloxetine HCl (Duloxetine Hcl 60 Mg Capsule.Dr) 60 mg PO QAM [facility] Last Admin: 09/16/23 09:25 Dose: 60 mg Enoxaparin Sodium (Enoxaparin 40 Mg/0.4 Ml Syringe) 40 mg SQ DAILY [facility] Last Admin: 09/16/23 10:37 Dose: Not Given Famotidine (Famotidine 20 Mg Tab) 20 mg PO DAILY [facility] Fentanyl Citrate (Fentanyl (Pf) 50 Mcg/Ml 2 Ml Amp) 50 mcg IV Q3M PRN PRN Reason: Phase I - Pain Control Stop: 09/16/23 23:00 Hydromorphone HCl (Hydromorphone 0.5 Mg/0.5 Ml Syringe) 0.5 mg IVP Q5M PRN PRN Reason: Phase 1 or 2 - Pain Control Stop: 09/16/23 23:00 Sodium Chloride (Saline 0.9%) 1,000 mls @ 75 mls/hr IV .[id number] [facility] Last Admin: 09/15/23 23:03 Dose: Not Given Piperacillin Sod/Tazobactam (Sod 3.375 gm/ Sodium Chloride) 100 mls @ 25 mls/hr IVPB Q8HR [facility]; Protocol Last Admin: 09/16/23 09:26 Dose: 25 mls/hr Lactated Ringer's (Lactated Ringers) 1,000 mls @ 20 mls/hr IV .Q24H [facility] Last Admin: 09/15/23 21:06 Dose: Not Given Ketorolac Tromethamine (Ketorolac 15 Mg/Ml 1 Ml Vial) 15 mg IVP Q6HR PRN PRN Reason: Pain Stop: 09/18/23 11:23 Last Admin: 09/14/23 12:45 Dose: 15 mg Lidocaine HCl (Lidocaine 1% (10mg/Ml) For Iv Start) 0.1 ml INTRADERMA PER PROTOCOL PRN PRN Reason: IV Start Lisinopril (Lisinopril 10 Mg Tab) 10 mg PO [facility] Last Admin: 09/15/23 20:55 Dose: 10 mg Loratadine (Loratadine 10 Mg Tab) 10 mg PO [facility] Last Admin: 09/16/23 10:38 Dose: Not Given Lorazepam (Lorazepam 1 Mg Tab) 1 mg PO BID PRN PRN Reason: Anxiety Last Admin: 09/13/23 21:38 Dose: 1 mg Magnesium Hydroxide (Magnesium Hydroxide 2,400 Mg/30 Ml Cup) 2,400 mg PO DAILY PRN PRN Reason: Constipation Metoprolol Succinate (Metoprolol Succinate (Er) 25 Mg Tab.Er.24h) 12.5 mg PO PC-LUNCH [facility] Last Admin: 09/15/23 14:29 Dose: 12.5 mg Montelukast Sodium (Montelukast 10 Mg Tab) 10 mg PO QAM [facility] Last Admin: 09/16/23 10:38 Dose: Not Given Naloxone HCl (Naloxone 0.4 Mg/Ml 1 Ml Vial) 0.2 mg IV Q2M PRN PRN Reason: Opioid Reversal Oxybutynin Chloride (Oxybutynin Xl 5 Mg Tab.Er.24) 5 mg PO DAILY [facility] Last Admin: 09/16/23 09:26 Dose: 5 mg Prednisone (Prednisone 20 Mg Tab) 40 mg PO DAILY [facility] Last Admin: 09/16/23 09:25 Dose: 40 mg Sodium Chloride (Sodium Chloride 5% Ophth Drops 15 Ml Btl) 1 drops BOTH EYES BID [facility] Last Admin: 09/15/23 21:05 Dose: Not Given Tramadol HCl (Tramadol 50 Mg Tab) 50 mg PO BID PRN PRN Reason: Pain On examination: VITAL SIGNS: 98.1, 63, 17, 129 x 68, 96% room air GENERAL APPEARANCE: Sitting up reclining in bed, not in distress HEENT: Normal external appearance of nose and ear. Oral cavity normal EYES: Pupils equal. Conjunctiva normal. NECK: JVD not raised. Mass not palpable. RESPIRATORY: Respiratory effort normal. Lungs decreased breath sounds. CARDIOVASCULAR: First and second sounds normal. No edema. ABDOMEN: Soft. Liver and spleen not palpable. . No mass palpable. Quadrant tenderness PSYCHIATRY: Alert and oriented x3. Mood and affect normal. INVESTIGATIONS, reviewed in the clinical context: September 16, 2023: White count 12.7 hemoglobin 11.7 platelets 513 sodium 133 potassium 4.3 creatinine 0.84 September 15, 2023: Sodium 133 potassium 3.4 creatinine 0.73 September 13 white count 13.1 hemoglobin 11.2 platelets 501 Bed ultrasound: Mild hydropic gallbladder. 2 lesions of the right kidney. Assessment and plan -Multiple falls can be secondary to Neurontin-discontinued. Continue with Cymbalta. Patient apparently complained of dizziness amlodipine is on hold, dizziness has resolved. BP not low. -Acute left greater tronchater fracture secondary to fall. Seen by Dr. Rosario. Protected weightbearing and utilize a walker at all times. Physical therapy. No surgical intervention. Follow-up outpatient . -Right upper quadrant abdominal pain likely due to acute on chronic cholecystitis, US reveals a mildly hydropic gallbladder: Slow to respond IV zosyn, Dr Garvin following. Because patient received Plavix surgery was rescheduled. Patient is added on today. -COPD with acute exacerbation and bronchitis, mild right lower lobe infiltrate noted on exam. DuoNeb 4 times daily. Symbicort. Prednisone 40 mg -Scoliosis -Generalized asthenia physical therapy and Occupational Therapy evaluation -Gastroesophageal reflux disease -Hyperlipidemia Lipitor -Peripheral vascular disease -Peripheral neuropathy Cymbalta. Neurontin. Plavix -Osteoporosis -Overactive bladder -Anxiety Ativan as needed. -Full code Continue medications. Add sodium bicarbonate tablets. Add on for surgery today.
[2023-09-16] MEDS: LIDOCAINE 2%-EPI 1:100,000 20 ML VIAL SQ ONE ×2 (18:15→19:02)
[2023-09-16] MEDS: SODIUM CHLORIDE 0.9% 1,000 ML IV ONE (18:40)
--- NOTE | 2023-09-16 19:28 | P.OP ---
Date of Procedure: 09/16/23 Preoperative Diagnosis: cholecystitis Postoperative Diagnosis: cholecystitis Procedure(s) Performed: laparoscopic cholecystectomy Anesthesia: ERIN Surgeon: Juliocesar Garvin Estimated Blood Loss (ml): 5 Pathology: none sent Condition: stable Disposition: PACU Description of Procedure: The patient was placed on the operating table. The patient received a general endotracheal tube anesthesia. The patients abdomen was prepped and draped in the usual sterile fashion. Through an infraumbilical stab incision, the fascia of the anterior abdominal wall was grasped with a pair of Kochers and then the Veress needle was placed in the peritoneal cavity. Position of the Veress needle was confirmed with positive drop test. The abdomen was then insufflated. After adequate insufflation, the 10 mm trocar was placed in the peritoneal cavity. Following this the laparoscope was placed in the peritoneal cavity. The patient was placed in the head-up, right side up position and then a 5 mm trocar was placed in the right lateral and right subcostal position under direct visualization. A 8 mm trocar was placed in the epigastric position. The gallbladder was grasped in the fundus and infundibulum. Traction on the gallbladder was placed in the lateral and the c ephalad positions. The triangle of Calot was visualized.. The cystic duct was bluntly dissected until the union of the cystic duct and common bile duct was seen. A critical view of safety was achieved. The cystic duct was then divided and sealed with the Harmonic scissors. A PDS Endoloop was then placed throughout the cystic duct stump. The cystic artery divided and sealed with the Harmonic scissors. The gallbladder was then removed from the liver bed using Harmonic scissors. The gallbladder was then extracted through the epigastric port site. Operative field was checked for any bleeding spots and Harmonic scissors was used to coagulate the liver bed. The abdomen was irrigated. The trocars were removed. The skin was closed using interrupted 3-0 Vicryl suture. Dermabond dressing were applied. The patient tolerated the procedure well.
[2023-09-16] MEDS: SODIUM BICARBONATE TAB 650 MG TAB PO SCH (21:27)
[2023-09-16] MEDS: LORATADINE 10 MG TAB PO ONE (22:50)
[2023-09-17] MEDS: traMADol 50 MG TAB PO PRN (02:21)
[2023-09-17] MEDS: FAMOTIDINE 20 MG TAB PO SCH (09:43)
--- NOTE | 2023-09-17 11:50 | P.PN ---
Subjective Progress Note Date: 09/17/23 This is a 73-year-old female who is seen today in the observation unit, room 161. She is currently on room air. The patient apparently came into the hospital complaining of losing balance, and pain in her right side, radiating to the back. The patient's chest x-ray shows some atelectasis in my opinion at the right lung base, likely because of her underlying gallbladder disease. She apparently is scheduled to have a cholecystectomy, tomorrow. Her procalcitonin level was 0.05, which is normal. She was placed on Rocephin and azithromycin. She did smoke for 40 to 50 years, at 1 pack a day. She does have established COPD and she sees my partner Dr. Kwon. For her COPD she uses Trelegy 200, 1 puff daily, and albuterol, as needed. Patient was actually admitted on September 11. The patient's past medical history is positive for COPD, gastroesophageal reflux disease, hyperlipidemia, hypertension, peripheral neuropathy, peripheral artery disease, overactive bladder, hyperparathyroidism, kidney stones, osteoporosis, cervical cancer, as well as anxiety. The patient currently does not smoke. Current labs include a white count of 15.3, hemoglobin 12.3, hematocrit 37.9, and a platelet count of 439,000. Coagulation studies were normal. Sodium 127, potassium 3.6, chlorides 98, CO2 22, BUN 12, creatinine 0.78. Glucose is normal. Procalcitonin level is 0.05. Urine is negative. She tested negative for influenza, RSV, and coronavirus. Blood cultures are currently negative. Gallbladder ultrasound shows a mildly hydropic gallbladder without biliary duct dilatation. A HIDA scan was recommended. Progress note dated September 15, 2023. 73-year-old female seen in consultation yesterday. She is seen again today in room 161, in the observation unit. The patient was essentially admitted with right upper quadrant abdominal pain. She also fell, and injured her left hip. The patient is apparently scheduled to have cholecystectomy today. Currently, she is on room air. She is getting saline at 75 cc an hour. I believe she is on Zosyn. Labs include a sodium 133, potassium 3.4, chlorides 109, CO2 17, BUN 17, and creatinine 0.73. Glucose is 107. Calcium is 8.9. Progress note dated September 16, 2023. 73-year-old female seen today in room 161. She is still awaiting gallbladder surgery. She is on room air. She is getting Zosyn, and saline at 75 cc an hour. The patient states that her breathing is much improved. She denies any significant or worsening shortness of breath, cough, wheezing, chest tightness, or phlegm production. The patient is on the operating room schedule for today, although I am not sure what time her surgery will be done. White count is 12.7, hemoglobin 11.7, hematocrit 36.6, platelet count 513,000. Sodium 133, potassium 4.3, chlorides 108, CO2 18, BUN 17, creatinine 0.84. Glucose is 116. The patient is seen today September 17, 2023 in follow-up on the regular medical floor. She is currently resting in bed. Awake and alert in no acute distress. Maintaining O2 saturations in the 90s on 2 L/min per nasal cannula. She has normal saline at 75 MLS per hour. She is continued on Zosyn. She did undergo a laparoscopic cholecystectomy yesterday. She denies any worsening pain. Count 12.7. Hemoglobin 11.7. Platelets 513. Sodium 133. Potassium 4.3. Bicarb 18. BUN 17. Creatinine 0.84. She remains on DuoNeb ventilations, Symbicort, prednisone taper. Lovenox for DVT prophylaxis. Objective - Vital Signs Vital signs: Vital Signs Temp 97.4 F L 09/17/23 07:21 Pulse 65 09/17/23 09:50 Resp 17 09/17/23 09:50 BP 142/82 09/17/23 07:21 Pulse Ox 97 09/17/23 07:21 FiO2 Intake & Output 09/16/23 09/17/23 09/17/23 18:59 06:59 18:59 Intake Total 1100 810 Output Total 655 450 Balance 445 810 -450 Weight 54.431 kg Intake: IV 200 10 Invasive Line 2 10 Intake, IV Titration 900 Amount Piperacillin-Tazobactam 3 100 .375 gm In Sodium Chloride 0.9% 100 ml @ 25 mls/hr IVPB Q8HR [facility] Rx# :[id number] Sodium Chloride 0.9% 1, 800 000 ml @ 75 mls/hr IV . [id number] [facility] Rx#:[id number] Oral 800 Output: Urine 650 450 Estimated Blood Loss 5 Other: Voiding Method External Catheter External Catheter External Catheter - Exam GENERAL EXAM: Alert, pleasant 73-year-old female, on 2 L nasal cannula, fairly comfortable in no apparent distress. HEAD: Normocephalic. EYES: Normal reaction of pupils, equal size. NOSE: Clear with pink turbinates. THROAT: No erythema or exudates. NECK: No masses, no JVD. CHEST: No chest wall deformity. LUNGS: Equal air entry with no crackles, wheeze, rhonchi or dullness. CVS: S1 and S2 normal with no audible murmur, regular rhythm. ABDOMEN: Surgical sites clean dry and well-approximated. No hepatosplenomegaly, normal bowel sounds, no guarding or rigidity. SPINE: No scoliosis or deformity SKIN: No rashes CENTRAL NERVOUS SYSTEM: No focal deficits, tone is normal in all 4 extremities. EXTREMITIES: There is no peripheral edema. No clubbing, no cyanosis. Peripheral pulses are intact. - Labs CBC & Chem 7: 09/16/23 06:07 09/16/23 06:07 Labs: Microbiology - Last 24 Hours (Table) 09/13/23 06:00 Blood Culture - Preliminary Blood 09/13/23 05:45 Blood Culture - Preliminary Blood Assessment and Plan Assessment: Acute cholecystitis status post laparoscopic cholecystectomy. Postoperative day #1 COPD, stable, secondary to 40 to 50 years of tobacco use Status post fall, with fracture of the left greater trochanter History of gastroesophageal reflux disease History of hypertension History of hyperlipidemia History of hyperparathyroidism, and kidney stones History of osteoporosis History of cervical cancer Stress urinary incontinence Plan: The patient was seen and evaluated Currently stable and on 2 L nasal cannula Labs and medications reviewed Continued on Zosyn Continued on bronchodilators, steroids Normal saline at 75 MLS per hour Encourage increased use of the incentive spirometer Increase her activity as tolerated This patient was seen independently by the pulmonary nurse practitioner addressing pulmonary issues I have personally seen and examined the patient, performed the documentation and the assessment and plan as written. Number of minutes spent on the visit: 25.
--- NOTE | 2023-09-17 13:37 | P.PN ---
Subjective Progress Note Date: 09/17/23 CHIEF COMPLAINT: Cholecystitis HISTORY OF PRESENT ILLNESS: Patient is postop day #1 status post laparoscopic cholecystectomy. Patient was complaining of abdominal pain this morning. She was due for pain medication. She denies any nausea or vomiting. She is urinating without difficulty. She is having flatus. Afebrile. PHYSICAL EXAM: VITAL SIGNS: Reviewed. GENERAL: Well-developed in no acute distress. ABDOMEN: Soft. Nondistended. Incision sites clean dry and intact NEUROLOGIC: Alert and oriented. Cranial nerves II through XII grossly intact. ASSESSMENT: 1. Acute cholecystitis 2. Cholelithiasis PLAN: -Advance diet to regular -Ok to resume Plavix -Continue pain management -Encourage patient to increase activity level -Incentive spirometer ordered -Patient can be discharged from surgical standpoint when medically cleared Physician Accounting File Clerk note has been reviewed by physician. Signing provider agrees with the documented findings, assessment, and plan of care. Objective - Vital Signs Vital signs: Vital Signs Temp 97.4 F L 09/17/23 07:21 Pulse 65 09/17/23 09:50 Resp 17 09/17/23 09:50 BP 142/82 09/17/23 07:21 Pulse Ox 97 09/17/23 07:21 FiO2 Intake & Output 09/16/23 09/17/23 09/17/23 18:59 06:59 18:59 Intake Total 1100 810 Output Total 655 450 Balance 445 810 -450 Weight 54.431 kg Intake: IV 200 10 Invasive Line 2 10 Intake, IV Titration 900 Amount Piperacillin-Tazobactam 3 100 .375 gm In Sodium Chloride 0.9% 100 ml @ 25 mls/hr IVPB Q8HR [facility] Rx# :[id number] Sodium Chloride 0.9% 1, 800 000 ml @ 75 mls/hr IV . [id number] [facility] Rx#:[id number] Oral 800 Output: Urine 650 450 Estimated Blood Loss 5 Other: Voiding Method External Catheter External Catheter External Catheter - Labs CBC & Chem 7: 09/16/23 06:07 09/16/23 06:07 Labs: Microbiology - Last 24 Hours (Table) 09/13/23 06:00 Blood Culture - Preliminary Blood 09/13/23 05:45 Blood Culture - Preliminary Blood
[2023-09-17 14:44] LABS: Anisocytosis Slight; Basophils % (A) 0 %; Eosinophils % (A) 0 %; HCT 33.1 % (34.0-46.0); HGB 10.3 gm/dL (11.4-16.0); Hypochromasia Slight; Lymphocytes # (A) 1.5 k/uL (1.0-4.8); Lymphocytes % (A) 9 %; MCH 27.5 pg (25.0-35.0); MCV 88.6 fL (80.0-100.0); Mean Platelet Volume 7.8; Monocytes # (A) 0.6 k/uL (0-1.0); Monocytes % (A) 4 %; Neutrophils # (A) 14.3 k/uL (1.3-7.7); Neutrophils % (A) 86 %; Platelet Count 548 k/uL (150-450); RBC 3.73 m/uL (3.80-5.40); RDW 16.1 % (11.5-15.5); WBC 16.6 k/uL (3.8-10.6)
[2023-09-17 15:44] LABS: Crenated RBC Present; Poikilocytosis (M) Present
[2023-09-17 15:45] LABS: Toxic Granulation Present
--- NOTE | 2023-09-17 21:37 | P.PN ---
Progress Note - Text Progress Note Date: 09/17/23 Patient is a pleasant 73-year-old female came with complaints of multiple falls. Patient was recently started on Neurontin and believes that Neurontin is causing her falls. Patient has multiple other complaints as well patient is complaining also of left hip pain hip x-ray did not show any fracture, I will obtain a CT of the hip. Patient is unable to move the hip at all patient does have gallstones and patient is complaining of severe pain in the right upper quadrant. Patient does have tenderness in the right upper quadrant ultrasound is being obtained and given surgery is being consulted. Patient has scoliosis and is on scheduled Flexeril without that patient has severe muscle spasms. Patient also has neuropathic symptoms patient is also on Cymbalta along with Neurontin for that patient apparently complained of some dizziness to the ER doctor although she denies any such complaints. Patient used to smoke quit smoking is complaining of cough with some greenish sputum production chest x-ray did not show any pneumonia. Although it was read as a right lower lobe pneumonia. I will obtain a procalcitonin level patient was started on azithromycin. Patient has slight wheezing on exam. Patient is also hyponatremic with a serum sodium of 127 09/14/2023 Patient is evaluated in follow up today on the medical floor. Her main complaint is right flank and right upper quadrant pain states it is sharp and aching rating 10/10. States the pain is greater than the pain to the left hip. Patient is receiving norco 7.5 mg and IV toradol. There is concern for Right lower lobe pneumonia, procalcitonin level is normal. Viral panel has been ordered. Patient is complaining of shortness of breath and wheezing today does have scattered wheezing on exam. Gallbladder ultrasound reveals mild hydropic gallbladder with concern for acute on chronic cholecystitis. General surgery following and patient is currently on IV zosyn. The hip CT reveals left greater trochanter fracture, minimally communited, and not significantly displaced. No new blood work from today. September 15, 2023: Sitting up in bed. Right upper quadrant pain. Patient received Plavix yesterday. Surgery rescheduled for tomorrow. September 16, 2023: Patient was seen earlier this afternoon. Sitting up in bed. Having right upper abdominal pain. NPO. Pending surgery. Breathing better. Patient is add-on for surgery September 17, 2023: Patient underwent cholecystectomy. This afternoon sitting up in her recliner. Diet was ordered. Breathing better. Active Medications Acetaminophen (Acetaminophen Tab 325 Mg Tab) 650 mg PO Q6HR PRN PRN Reason: Mild Pain or Fever > 100.5 Hydrocodone Bitart/Acetaminophen (Hydrocodone/Apap 7.5-325mg 1 Each Tab) 1 each PO Q6HR PRN PRN Reason: Pain Last Admin: 09/17/23 09:43 Dose: 1 each Albuterol/Ipratropium (Ipratropium-Albuterol 3 Ml Neb) 3 ml INHALATION RT-QID PRN PRN Reason: Shortness Of Breath Or Wheezing Albuterol/Ipratropium (Ipratropium-Albuterol 3 Ml Neb) 3 ml INHALATION RT-QID [facility] Last Admin: 09/17/23 21:10 Dose: Not Given Aspirin (Aspirin 81 Mg) 81 mg PO QAM [facility] Last Admin: 09/17/23 09:43 Dose: 81 mg Atorvastatin Calcium (Atorvastatin 10 Mg Tab) 10 mg PO HS [facility] Last Admin: 09/16/23 22:44 Dose: 10 mg Baclofen (Baclofen 10 Mg Tab) 10 mg PO BID [facility] Last Admin: 09/17/23 09:43 Dose: 10 mg Budesonide/Formoterol Fumarate (Symbicort 160-4.5 Mcg Inhaler) 2 puff INHALATION RT-BID [facility] Last Admin: 09/17/23 21:10 Dose: 2 puff Docusate Sodium (Docusate 100 Mg Cap) 100 mg PO BID [facility] Last Admin: 09/17/23 09:44 Dose: 100 mg Duloxetine HCl (Duloxetine Hcl 60 Mg Capsule.Dr) 60 mg PO QAM [facility] Last Admin: 09/17/23 09:44 Dose: 60 mg Enoxaparin Sodium (Enoxaparin 40 Mg/0.4 Ml Syringe) 40 mg SQ DAILY [facility] Last Admin: 09/17/23 09:43 Dose: 40 mg Famotidine (Famotidine 20 Mg Tab) 20 mg PO DAILY [facility] Last Admin: 09/17/23 09:43 Dose: 20 mg Sodium Chloride (Saline 0.9%) 1,000 mls @ 75 mls/hr IV .[id number] [facility] Last Admin: 09/17/23 00:54 Dose: Not Given Piperacillin Sod/Tazobactam (Sod 3.375 gm/ Sodium Chloride) 100 mls @ 25 mls/hr IVPB Q8HR [facility]; Protocol Last Admin: 09/17/23 16:51 Dose: 25 mls/hr Lactated Ringer's (Lactated Ringers) 1,000 mls @ 20 mls/hr IV .Q24H [facility] Last Admin: 09/16/23 21:27 Dose: Not Given Ketorolac Tromethamine (Ketorolac 15 Mg/Ml 1 Ml Vial) 15 mg IVP Q6HR PRN PRN Reason: Pain Stop: 09/18/23 11:23 Last Admin: 09/17/23 01:12 Dose: 15 mg Lidocaine HCl (Lidocaine 1% (10mg/Ml) For Iv Start) 0.1 ml INTRADERMA PER PROTOCOL PRN PRN Reason: IV Start Lisinopril (Lisinopril 10 Mg Tab) 10 mg PO HS [facility] Last Admin: 09/16/23 22:44 Dose: 10 mg Loratadine (Loratadine 10 Mg Tab) [facility] [place] Last Admin: 09/17/23 09:43 Dose: 10 mg Lorazepam (Lorazepam 1 Mg Tab) 1 mg PO BID PRN PRN Reason: Anxiety Last Admin: 09/13/23 21:38 Dose: 1 mg Magnesium Hydroxide (Magnesium Hydroxide 2,400 Mg/30 Ml Cup) 2,400 mg PO DAILY PRN PRN Reason: Constipation Metoprolol Succinate (Metoprolol Succinate (Er) 25 Mg Tab.Er.24h) 12.5 mg PO PC-LUNCH [facility] Last Admin: 09/17/23 16:51 Dose: 12.5 mg Montelukast Sodium (Montelukast 10 Mg Tab) 10 mg PO QAM [facility] Last Admin: 09/17/23 09:43 Dose: 10 mg Naloxone HCl (Naloxone 0.4 Mg/Ml 1 Ml Vial) 0.2 mg IV Q2M PRN PRN Reason: Opioid Reversal Oxybutynin Chloride (Oxybutynin Xl 5 Mg Tab.Er.24) 5 mg PO DAILY [facility] Last Admin: 09/17/23 09:43 Dose: 5 mg Prednisone (Prednisone 10 Mg Tab) 30 mg PO DAILY [facility] Sodium Bicarbonate (Sodium Bicarbonate Tab 650 Mg Tab) 650 mg PO TID [facility] Last Admin: 09/17/23 16:51 Dose: 650 mg Sodium Chloride (Sodium Chloride 5% Ophth Drops 15 Ml Btl) 1 drops BOTH EYES BID BRAD Last Admin: 09/17/23 16:52 Dose: 1 drops Tramadol HCl (Tramadol 50 Mg Tab) 50 mg PO BID PRN PRN Reason: Pain Last Admin: 09/17/23 02:21 Dose: 50 mg On examination: VITAL SIGNS: 97.8, 85, 18, 107 x 74, 96% room air GENERAL APPEARANCE: Sitting up reclining in bed, not in distress HEENT: Normal external appearance of nose and ear. Oral cavity normal EYES: Pupils equal. Conjunctiva normal. NECK: JVD not raised. Mass not palpable. RESPIRATORY: Respiratory effort normal. Lungs decreased breath sounds. CARDIOVASCULAR: First and second sounds normal. No edema. ABDOMEN: Soft. Liver and spleen not palpable. . No mass palpable. Quadrant tenderness PSYCHIATRY: Alert and oriented x3. Mood and affect normal. INVESTIGATIONS, reviewed in the clinical context: September 16, 2023: White count 12.7 hemoglobin 11.7 platelets 513 sodium 133 potassium 4.3 creatinine 0.84 September 15, 2023: Sodium 133 potassium 3.4 creatinine 0.73 September 13 white count 13.1 hemoglobin 11.2 platelets 501 Bed ultrasound: Mild hydropic gallbladder. 2 lesions of the right kidney. Assessment and plan -Multiple falls can be secondary to Neurontin-discontinued. Continue with Cymbalta. Patient apparently complained of dizziness amlodipine is on hold, dizziness has resolved. BP not low. -Acute left greater tronchater fracture secondary to fall. Seen by Dr. Rosario. Protected weightbearing and utilize a walker at all times. Physical therapy. No surgical intervention. Follow-up outpatient . -Right upper quadrant abdominal pain likely due to acute on chronic cholecystitis, US reveals a mildly hydropic gallbladder: IV zosyn, Cholecystectomy on September 15-by Dr Garvin -COPD with acute exacerbation and bronchitis, mild right lower lobe infiltrate noted on exam.: Improving DuoNeb 4 times daily. Symbicort. Prednisone 40 mg -Scoliosis -Generalized asthenia physical therapy and Occupational Therapy evaluation -Gastroesophageal reflux disease -Hyperlipidemia Lipitor -Peripheral vascular disease -Peripheral neuropathy Cymbalta. Neurontin. Plavix -Osteoporosis -Overactive bladder -Anxiety Ativan as needed. -Full code Diet advance per surgery. Will DC antibiotics if okay with surgery.
[2023-09-17] MEDS: MAGNESIUM HYDROXIDE 2,400 MG/30 ML CUP PO PRN (22:00)
[2023-09-18 07:42] VITALS: BP 124/70; PULSE 74; RESP 19; TEMP 98.1
--- NOTE | 2023-09-18 08:21 | P.PN ---
Subjective Progress Note Date: 09/18/23 This is a 73-year-old female who is seen today in the observation unit, room 161. She is currently on room air. The patient apparently came into the hospital complaining of losing balance, and pain in her right side, radiating to the back. The patient's chest x-ray shows some atelectasis in my opinion at the right lung base, likely because of her underlying gallbladder disease. She apparently is scheduled to have a cholecystectomy, tomorrow. Her procalcitonin level was 0.05, which is normal. She was placed on Rocephin and azithromycin. She did smoke for 40 to 50 years, at 1 pack a day. She does have established COPD and she sees my partner Dr. Kwon. For her COPD she uses Trelegy 200, 1 puff daily, and albuterol, as needed. Patient was actually admitted on September 11. The patient's past medical history is positive for COPD, gastroesophageal reflux disease, hyperlipidemia, hypertension, peripheral neuropathy, peripheral artery disease, overactive bladder, hyperparathyroidism, kidney stones, osteoporosis, cervical cancer, as well as anxiety. The patient currently does not smoke. Current labs include a white count of 15.3, hemoglobin 12.3, hematocrit 37.9, and a platelet count of 439,000. Coagulation studies were normal. Sodium 127, potassium 3.6, chlorides 98, CO2 22, BUN 12, creatinine 0.78. Glucose is normal. Procalcitonin level is 0.05. Urine is negative. She tested negative for influenza, RSV, and coronavirus. Blood cultures are currently negative. Gallbladder ultrasound shows a mildly hydropic gallbladder without biliary duct dilatation. A HIDA scan was recommended. Progress note dated September 15, 2023. 73-year-old female seen in consultation yesterday. She is seen again today in room 161, in the observation unit. The patient was essentially admitted with right upper quadrant abdominal pain. She also fell, and injured her left hip. The patient is apparently scheduled to have cholecystectomy today. Currently, she is on room air. She is getting saline at 75 cc an hour. I believe she is on Zosyn. Labs include a sodium 133, potassium 3.4, chlorides 109, CO2 17, BUN 17, and creatinine 0.73. Glucose is 107. Calcium is 8.9. Progress note dated September 16, 2023. 73-year-old female seen today in room 161. She is still awaiting gallbladder surgery. She is on room air. She is getting Zosyn, and saline at 75 cc an hour. The patient states that her breathing is much improved. She denies any significant or worsening shortness of breath, cough, wheezing, chest tightness, or phlegm production. The patient is on the operating room schedule for today, although I am not sure what time her surgery will be done. White count is 12.7, hemoglobin 11.7, hematocrit 36.6, platelet count 513,000. Sodium 133, potassium 4.3, chlorides 108, CO2 18, BUN 17, creatinine 0.84. Glucose is 116. The patient is seen today September 17, 2023 in follow-up on the regular medical floor. She is currently resting in bed. Awake and alert in no acute distress. Maintaining O2 saturations in the 90s on 2 L/min per nasal cannula. She has normal saline at 75 MLS per hour. She is continued on Zosyn. She did undergo a laparoscopic cholecystectomy yesterday. She denies any worsening pain. Count 12.7. Hemoglobin 11.7. Platelets 513. Sodium 133. Potassium 4.3. Bicarb 18. BUN 17. Creatinine 0.84. She remains on DuoNeb ventilations, Symbicort, prednisone taper. Lovenox for DVT prophylaxis. The patient is seen today September 18, 2023 in follow-up on the regular medical floor. She is awake and alert in no acute distress. Resting comfortably in bed. Denies any shortness of breath, cough or congestion. Denies any significant abdominal discomfort. She is maintaining good O2 saturations in the 90s on room air. She has normal saline at 75 MLS per hour. Her appetite is improving. She remains on DuoNeb inhalations, Symbicort, Singulair, antibiotics in the form of Zosyn. Blood cultures revealed no growth. Labs are pending. She remains on Lovenox for DVT prophylaxis Objective - Vital Signs Vital signs: Vital Signs Temp 98.1 F 09/18/23 06:56 Pulse 74 09/18/23 06:56 Resp 19 09/18/23 06:56 BP 124/70 09/18/23 06:56 Pulse Ox 94 L 09/18/23 06:56 FiO2 Intake & Output 09/17/23 09/18/23 09/18/23 18:59 06:59 18:59 Output Total 450 Balance -450 Output: Urine 450 Other: Voiding Method External Catheter Bedside Commode External Catheter # Voids 3 1 # Bowel Movements 1 1 - Exam GENERAL EXAM: Alert, oriented 73-year-old female, on room air, resting in bed, comfortable in no apparent distress. HEAD: Normocephalic. EYES: Normal reaction of pupils, equal size. NOSE: Clear with pink turbinates. THROAT: No erythema or exudates. NECK: No masses, no JVD. CHEST: No chest wall deformity. LUNGS: Equal air entry with no crackles, wheeze, rhonchi or dullness. CVS: S1 and S2 normal with no audible murmur, regular rhythm. ABDOMEN: Surgical sites clean dry and well-approximated. No hepatosplenomegaly, normal bowel sounds, no guarding or rigidity. SPINE: No scoliosis or deformity SKIN: No rashes CENTRAL NERVOUS SYSTEM: No focal deficits, tone is normal in all 4 extremities. EXTREMITIES: There is no peripheral edema. No clubbing, no cyanosis. Peripheral pulses are intact. - Labs CBC & Chem 7: 09/17/23 14:12 09/16/23 06:07 Labs: Abnormal Lab Results - Last 24 Hours (Table) 09/17/23 Range/Units 14:12 WBC 16.6 H (3.8-10.6) k/uL RBC 3.73 L (3.80-5.40) m/uL Hgb 10.3 L (11.4-16.0) gm/dL Hct 33.1 L (34.0-46.0) % RDW 16.1 H (11.5-15.5) % Plt Count 548 H (150-450) k/uL Neutrophils # 14.3 H (1.3-7.7) k/uL Assessment and Plan Assessment: Acute cholecystitis status post laparoscopic cholecystectomy. Postoperative day #2 COPD, stable, secondary to 40 to 50 years of tobacco use Status post fall, with fracture of the left greater trochanter History of gastroesophageal reflux disease History of hypertension History of hyperlipidemia History of hyperparathyroidism, and kidney stones History of osteoporosis History of cervical cancer Stress urinary incontinence Plan: The patient was seen and evaluated Currently stable and on room air Medications reviewed Could be transitioned to oral antibiotics Home once cleared by surgical services This patient was seen independently by the pulmonary nurse practitioner addressing pulmonary issues I have personally seen and examined the patient, performed the documentation and the assessment and plan as written. Number of minutes spent on the visit: 23.
[2023-09-18] MEDS: predniSONE 10 MG TAB PO SCH (09:13)
--- NOTE | 2023-09-18 21:19 | P.DS ---
Providers Date of admission: 09/13/23 06:06 Expected date of discharge: 09/18/23 Attending physician: Rich Hanson Consults: 09/13/23 11:26 Consult Physician Routine Consulting Provider: Juliocesar Garvin Consult Reason/Comments: Possible cholecystitis Do you want consulting provider notified?: Yes 09/14/23 07:04 Consult Physician Routine Consulting Provider: Bharath Hazel Consult Reason/Comments: great trochanteric fracture Do you want consulting provider notified?: Yes 09/14/23 11:24 Consult Physician Routine Consulting Provider: Dru Buchanan Consult Reason/Comments: COPD exac Do you want consulting provider notified?: Yes Primary care physician: [facility] Hospital Course: Patient is a pleasant 73-year-old female came with complaints of multiple falls. Patient was recently started on Neurontin and believes that Neurontin is causing her falls. Patient has multiple other complaints as well patient is complaining also of left hip pain hip x-ray did not show any fracture, I will obtain a CT of the hip. Patient is unable to move the hip at all patient does have gallstones and patient is complaining of severe pain in the right upper quadrant. Patient does have tenderness in the right upper quadrant ultrasound is being obtained and given surgery is being consulted. Patient has scoliosis and is on scheduled Flexeril without that patient has severe muscle spasms. Patient also has neuropathic symptoms patient is also on Cymbalta along with Neurontin for that patient apparently complained of some dizziness to the ER doctor although she denies any such complaints. Patient used to smoke quit smoking is complaining of cough with some greenish sputum production chest x-ray did not show any pneumonia. Although it was read as a right lower lobe pneumonia. I will obtain a procalcitonin level patient was started on azithromycin. Patient has slight wheezing on exam. Patient is also hyponatremic with a serum sodium of 127 09/14/2023 Patient is evaluated in follow up today on the medical floor. Her main complaint is right flank and right upper quadrant pain states it is sharp and aching rating 10/10. States the pain is greater than the pain to the left hip. Patient is receiving norco 7.5 mg and IV toradol. There is concern for Right lower lobe pneumonia, procalcitonin level is normal. Viral panel has been ordered. Patient is complaining of shortness of breath and wheezing today does have scattered wheezing on exam. Gallbladder ultrasound reveals mild hydropic gallbladder with concern for acute on chronic cholecystitis. General surgery following and patient is currently on IV zosyn. The hip CT reveals left greater trochanter fracture, minimally communited, and not significantly displaced. No new blood work from today. September 15, 2023: Sitting up in bed. Right upper quadrant pain. Patient received Plavix yesterday. Surgery rescheduled for tomorrow. September 16, 2023: Patient was seen earlier this afternoon. Sitting up in bed. Having right upper abdominal pain. NPO. Pending surgery. Breathing better. Patient is add-on for surgery September 17, 2023: Patient underwent cholecystectomy. This afternoon sitting up in her recliner. Diet was ordered. Breathing better. September 17: Tolerating diet well. Abdominal pain. Breathing stable. No need for antibiotics for. Prednisone taper. Discussed with patient. On examination: VITAL SIGNS: 98.1, 74, 19, 124/70, 94% room air GENERAL APPEARANCE: Comfort Mazin HEENT: Normal external appearance of nose and ear. Oral cavity normal EYES: Pupils equal. Conjunctiva normal. NECK: JVD not raised. Mass not palpable. RESPIRATORY: Respiratory effort normal. Lungs decreased breath sounds. CARDIOVASCULAR: First and second sounds normal. No edema. ABDOMEN: Soft. Liver and spleen not palpable. . No mass palpable. No tenderness PSYCHIATRY: Alert and oriented x3. Mood and affect normal. INVESTIGATIONS, reviewed in the clinical context: September 16, 2023: White count 12.7 hemoglobin 11.7 platelets 513 sodium 133 potassium 4.3 creatinine 0.84 September 15, 2023: Sodium 133 potassium 3.4 creatinine 0.73 September 13 white count 13.1 hemoglobin 11.2 platelets 501 Bed ultrasound: Mild hydropic gallbladder. 2 lesions of the right kidney. Assessment and plan -Multiple falls can be secondary to Neurontin-discontinued. Continue with Cymbalta. Patient apparently complained of dizziness amlodipine is on hold, dizziness has resolved. BP not low. -Acute left greater tronchater fracture secondary to fall. Seen by Dr. Rosario. Protected weightbearing and utilize a walker at all times . Physical therapy. No surgical intervention. Follow-up outpatient . -Right upper quadrant abdominal pain likely due to acute on chronic cholecystitis, US reveals a mildly hydropic gallbladder: Doing well IV zosyn, Cholecystectomy on September 15-by Dr Garvin -COPD with acute exacerbation and bronchitis, mild right lower lobe infiltrate noted on exam.: Improving DuoNeb 4 times daily. Symbicort. Prednisone 40 mg DC on prednisone taper -Scoliosis -Generalized asthenia: Improved -Gastroesophageal reflux disease -Hyperlipidemia Lipitor -Peripheral vascular disease -Peripheral neuropathy Cymbalta. Neurontin. Plavix -Osteoporosis -Overactive bladder -Anxiety Ativan as needed. -Full code Disposition: Home Plan - Discharge Summary Discharge Rx Participant: No New Discharge Prescriptions: New HYDROcodone/APAP 5-325MG [[place] 5-325] 1 tab PO Q6HR PRN 3 Days #12 tab PRN Reason: Pain Budesonide-Formot 160-4.5 Mcg [Symbicort 160-4.5 Mcg Inhaler] 2 puff INHALATION RT-BID #1 each Famotidine [Pepcid] 20 mg PO DAILY #30 tab predniSONE 10 mg PO DAILY #12 tab Continue Albuterol Inhaler [Ventolin Hfa Inhaler] 1 puff INHALATION RT-QID Fluticasone/Umeclidin/Vilanter [Trelegy Ellipta 200-62.5-25] 1 puff INHALATION RT-DAILY Magnesium Hydroxide [Milk of Magnesia] 30 ml PO DAILY PRN PRN Reason: Constipation LORazepam 1 mg PO BID PRN PRN Reason: Anxiety lisinopriL [Zestril] 10 mg PO HS Vit C/E/Zn/Coppr/Lutein/Zeaxan [Preservision Areds 2 Softgel] 2 tab PO BID DULoxetine HCL [Cymbalta] 60 mg PO QAM Sodium Chloride 5% Ophth Soln [[place] 128] 1 drop BOTH EYES BID Metoprolol Succinate [Metoprolol Succinate ER] 12.5 mg PO PC-LUNCH traMADol HCL 50 mg PO BID PRN PRN Reason: Pain Baclofen 10 mg PO BID Atorvastatin [Lipitor] 10 mg PO HS Aspirin [Adult Low Dose Aspirin EC] 81 mg PO QAM Clopidogrel [Plavix] 75 mg PO QAM Montelukast [Singulair] 10 mg PO QAM Loratadine 10 mg PO QAM Cholecalciferol [Vitamin D3 (25 Mcg = 1000 Iu)] 25 mcg PO QAM Propylene Glycol/Peg 400 [Systane Ultra 0.4-0.3% Eye Drp] 1 drop BOTH EYES QID PRN PRN Reason: Dry Eye(S) Oxybutynin Xl [Ditropan XL] 5 mg PO DAILY Discontinued amLODIPine BESYLATE 2.5 mg PO PC-LUNCH Docusate [Colace] 100 mg PO BID Gabapentin [Neurontin] 100 mg PO TID Ibuprofen 800 mg PO BID PRN PRN Reason: Pain Discharge Medication List Albuterol Inhaler [Ventolin Hfa Inhaler] 1 puff INHALATION RT-QID 07/26/23 [History] Aspirin [Adult Low Dose Aspirin EC] 81 mg PO QAM 07/26/23 [History] Atorvastatin [Lipitor] 10 mg PO HS 07/26/23 [History] Baclofen 10 mg PO BID 07/26/23 [History] Cholecalciferol [Vitamin D3 (25 Mcg = 1000 Iu)] 25 mcg PO QAM 07/26/23 [History] Clopidogrel [Plavix] 75 mg PO QAM 07/26/23 [History] DULoxetine HCL [Cymbalta] 60 mg PO QAM 07/26/23 [History] Fluticasone/Umeclidin/Vilanter [Trelegy Ellipta 200-62.5-25] 1 puff INHALATION RT-DAILY 07/26/23 [History] LORazepam 1 mg PO BID PRN 07/26/23 [History] Loratadine 10 mg PO QAM 07/26/23 [History] Magnesium Hydroxide [Milk of Magnesia] 30 ml PO DAILY PRN 07/26/23 [History] Metoprolol Succinate [Metoprolol Succinate ER] 12.5 mg PO PC-LUNCH 07/26/23 [History] Montelukast [Singulair] 10 mg PO QAM 07/26/23 [History] Vit C/E/Zn/Coppr/Lutein/Zeaxan [Preservision Areds 2 Softgel] 2 tab PO BID 07/26/23 [History] lisinopriL [Zestril] 10 mg PO HS 07/26/23 [History] traMADol HCL 50 mg PO BID PRN 07/26/23 [History] Oxybutynin Xl [Ditropan XL] 5 mg PO DAILY 09/13/23 [History] Propylene Glycol/Peg 400 [Systane Ultra 0.4-0.3% Eye Drp] 1 drop BOTH EYES QID PRN 09/13/23 [History] Sodium Chloride 5% Ophth Soln [[place] 128] 1 drop BOTH EYES BID 09/13/23 [History] HYDROcodone/APAP 5-325MG [[place] 5-325] 1 tab PO Q6HR PRN 3 Days #12 tab 09/17/23 [Rx] Budesonide-Formot 160-4.5 Mcg [Symbicort 160-4.5 Mcg Inhaler] 2 puff INHALATION RT-BID #1 each 09/18/23 [Rx] Famotidine [Pepcid] 20 mg PO DAILY #30 tab 09/18/23 [Rx] predniSONE 10 mg PO DAILY #12 tab 09/18/23 [Rx] Follow up Appointment(s)/Referral(s): [facility] [REFERRING] - (Contact for chore services) Dru Aldana MD [Primary Care Provider] - 1-2 days Juliocesar Garvin MD [STAFF PHYSICIAN] - 1 Week Patient Instructions/Handouts: *Surgery [facility] - Laparoscopic Cholecystectomy Discharge Instructions, Pneumonitis (DC) Activity/Diet/Wound Care/Special Instructions: Ask patient preferred Pharmacy before discharge. Will depend on day of discharge Protected weightbearing to the left lower extremity with a walker. Please follow-up with [facility] and call with any questions or concerns, . No driving while taking [place] No lifting over 10 pounds shower daily. No soaking or tub baths for 2 weeks Very light activity until you are reevaluated at your follow up appointment with your surgeon Discharge/Stand Alone Forms: Who Do I Call?, Personal Healthcare Administration Intern Discharge Disposition: HOME WITH HOME HEALTH SERVICES
== END 2023-09-18 13:31 | disposition home health service (06) | DRG 988 ==
LOC: EC 23:14 → 4SSUR 09-13 06:05 → OBSVTOIN 09-13 06:06 → 1SOBS 09-13 16:08 → 4SSUR 09-16 23:37
PROVIDERS: ADMIT Hospitalist; ATTEND Hospitalist
PROC: 0FT44ZZ Resection of Gallbladder, Percutaneous Endoscopic Approach (ICD-10-PCS; principal; 2023-09-16 07:30)
DX: S72.115A Nondisplaced fracture of greater trochanter of left femur, initial encounter for closed fracture (principal); E87.1 Hypo-osmolality and hyponatremia; K82.1 Hydrops of gallbladder; J44.1 Chronic obstructive pulmonary disease with (acute) exacerbation; K81.2 Acute cholecystitis with chronic cholecystitis; I73.9 Peripheral vascular disease, unspecified; I10 Essential (primary) hypertension; S80.212A Abrasion, left knee, initial encounter; M41.9 Scoliosis, unspecified; K21.9 Gastro-esophageal reflux disease without esophagitis; G62.9 Polyneuropathy, unspecified; T42.6X5A Adverse effect of other antiepileptic and sedative-hypnotic drugs, initial encounter; E78.5 Hyperlipidemia, unspecified; N39.3 Stress incontinence (female) (male); R29.6 Repeated falls; W01.0XXA Fall on same level from slipping, tripping and stumbling without subsequent striking against object, initial encounter; Z53.8 Procedure and treatment not carried out for other reasons; Z87.891 Personal history of nicotine dependence; Z91.81 History of falling; Z79.02 Long term (current) use of antithrombotics/antiplatelets; Z79.51 Long term (current) use of inhaled steroids; Z79.82 Long term (current) use of aspirin; Z79.891 Long term (current) use of opiate analgesic; Z11.52 Encounter for screening for COVID-19; Z79.899 Other long term (current) drug therapy; Z91.040 Latex allergy status; Z91.048 Other nonmedicinal substance allergy status; Z85.41 Personal history of malignant neoplasm of cervix uteri
CPT/HCPCS: 36415; 70450; 71045; 73502; 76705; 80048; 80053; 81003; 83605; 84145; 84484; 85025; 85027; 85610; 85730; 87040; 87636; 88304; 93005; 94640; 96361; 96365; 96368; 96375; 96376; 99285